=== PATIENT | male | born 1955 | race Caucasian/White ===

== ENCOUNTER → 2018-01-12 16:04 | Outpatient (CLI) | payer OTHER, SELFPAY ==
[2018-01-12 18:49] LABS: PSA,Total - Annual Screen 3.44 ng/mL (0.00-4.00)
== END ==
PROVIDERS: Family Provider Family Medicine; PCP Family Medicine; Visit Provider Urology
DX: Z12.5 Encounter for screening for malignant neoplasm of prostate (principal)
CPT/HCPCS: 36415; 84153; G0103

== ENCOUNTER → 2018-10-28 11:12 | Outpatient (CLI) | payer OTHER, SELFPAY ==
[2018-10-28 14:07] LABS: Absolute Lymphocyte Count 1.56 X10^3/ul (0.83-4.51); Absolute Neutrophil Count 4.5 X10^3/uL (2.0-7.7); Basophil# 0.03 X10^3/uL; Basophil% 0.4 % (0-1); Eosinophil# 0.36 X10^3/uL; Eosinophils% 5.1 % (0-5); Hematocrit 44.9 % (40-54); Hemoglobin 14.5 g/dl (13.0-16.5); Lymphocyte # 1.56 X10^3/ul (4.0); Lymphocyte % 22.1 % (19-41); Mean Corp Hgb Conc 32.3 g/gl (32-36); Monocyte# 0.61 X10^3/uL; Monocyte% 8.7 % (0-10); Neutrophil # 4.48 X10^3/uL (2.7-7.7); Neutrophil % 63.6 % (47-70); POSITIVE COUNT NO; POSITIVE DIFFERENTIAL NO; POSITIVE MORPHOLOGY NO; Platelet Count 241 K/mm3 (150-450); RBC Distribution Width CV 13.5 % (11.6-14.6); RBC Distribution Width SD 45.8 fl (35.1-43.9); Red Blood Count 4.83 M/mm3 (4.6-6.2); White Blood Count 7.1 K/mm3 (4.4-11.0)
[2018-10-28 14:24] LABS: Hemoglobin A1c 6.3 % (4.2-6.3)
[2018-10-28 14:30] LABS: ALB/GLOB Ratio 1.1 RATIO (0.9-2.4); AST(SGOT) 17 U/L (15-37); Alanine Aminotransfer ALT/SGPT 31 U/L (16-61); Albumin, Serum 3.6 g/dL (3.2-5.0); Alkaline Phosphatase 77 U/L (45-117); Anion Gap 7 (5-15); BUN 13 mg/dL (7-18); BUN/Creat Ratio 14.7 RATIO (10-20); Calcium,Total 8.8 mg/dL (8.5-10.1); Chloride 108 mmol/L (98-107); Cholesterol 166 mg/dL (200); Creatinine, Serum 0.88 mg/dL (0.70-1.30); EST Glomerular Filtration Rate 92 mL/min (>60); Est Glom Filt Rate - Afr Amer 111 mL/min (>60); Globulin 3.4 g/dL (2.2-4.2); Glucose 96 mg/dL (74-106); High Density Lipoprotein 46 mg/dL; Potassium 4.4 mmol/L (3.5-5.1); Sodium Level 140 mmol/L (136-145); Thyroid Stim Hormone (TSH) 2.95 uIU/mL (0.358-3.74); Triglycerides 85 mg/dL; Very Low Density Lipoprotein 17 mg/dL (5-40)
[2018-10-28 14:35] LABS: Microalbumin,Random Urine 8.5 mg/L (NO RANGE EST.); Microalbumin:Creatinine Ratio 4.9 mg/g CRE (<30 mg/g CRE)
--- OUTSIDE RECORDS SUMMARY | 2018-12-23 19:43 | XMS RPT_ITS ---
:1955 Author Organization [facility] Care Team Providers Name Role Phone Thom Main Attending Unavailable hTom Main Referring Unavailable Shawn Parmar Primary Care Unavailable Shawn Parmar Attending Unavailable Shawn Parmar Primary Care Unavailable PROBLEMS PROBLEMS No Problem Records FoundPROCEDURES PROCEDURES No Procedure Records FoundRESULTS RESULTS CBC W/DIFF, AUTOMATED Collected: 10/28/2018 Status: F Source: [place] 11:13 AM [facility] [place] REPOSITORY TYPE CODE TESTS RESULT OUT OF RANGE REFERENCE UNITS LAB L100.1000 4.4-11.0 K/mm3 Normal WBC 7.1 LAB L100.1200 4.6-6.2 M/mm3 Normal RBC 4.83 LAB L100.1300 13.0-16.5 g/dl Normal HGB 14.5 LAB L100.1400 40-54 % Normal HCT 44.9 LAB L100.1500 80-94 fL Normal MCV 93.0 LAB L100.1600 27.0-32.0 pg Normal MCH 30.0 LAB L100.1700 32-36 g/gl Normal MCHC 32.3 LAB L100.1810 11.6-14.6 % Normal RDW CV 13.5 LAB L100.1820 35.1-43.9 fl High RDW SD 45.8 LAB L100.1900 150-450 K/mm3 Normal PLT 241 LAB L100.2000 6.2-12.0 fl Normal MPV 11.0 LAB L100.2100 47-70 % Normal NEUT% 63.6 LAB L100.2200 19-41 % Normal LY% 22.1 LAB L100.2300 0-10 % Normal MONO% 8.7 LAB L100.2400 0-5 % High EO% 5.1 LAB L100.2500 0-1 % Normal BASO% 0.4 LAB L100.2550 0.0-0.9 % Normal IM GRAN % 0.100 Result Comment: IG% - Immature Granulocytes (promyelocytes, myelocytes and metamyelocytes) > 1% indicates that a LEFT SHIFT is Present. LAB L100.2620 2.0-7.7 X10 3/uL Normal Absolute Neut 4.5 LAB L100.2720 0.83-4.51 X10 3/ul Normal Absolute Lymph 1.56 Performed By: #### L100.0100 #### [facility] [address] [place], [place], [address] HEMOGLOBIN A1C Collected: 10/28/2018 Status: F Source: [place] 11:13 AM [facility] [place] REPOSITORY TYPE CODE TESTS RESULT OUT OF RANGE REFERENCE UNITS LAB L501.9985 4.2-6.3 % Normal HGB A1C 6.3 Performed By: #### L501.9985 #### [facility] [address] [place], [place], [address] COMPREHENSIVE METABOLIC Collected: 10/28/2018 Status: F Source: [facility] 11:13 AM [facility] [place] REPOSITORY TYPE CODE TESTS RESULT OUT OF RANGE REFERENCE UNITS LAB L501.0100 74-106 mg/dL Normal GLU 96 Result Comment: Please note revised GLUCOSE reference range effective 2018. LAB L501.1000 7-18 mg/dL Normal BUN 13 LAB L501.1100 0.70-1.30 mg/dL Normal CREAT,SERUM 0.88 Result Comment: The validity of the calculated GFR AND GFRAA in patients over 70 years has not been determined. Clinical correlation is essential. LAB L501.1110 >60 mL/min Normal EST GFR 92 Result Comment: Non- GFR Calc LAB L501.1115 >60 mL/min Normal EST GFR - AA 111 Result Comment: GFR Calc LAB L501.1300 10-20 RATIO Normal BUN/CRE 14.7 LAB L501.1500 6.4-8.2 g/dL T Normal PROT 7.0 LAB L501.1800 3.2-5.0 g/dL Normal ALB 3.6 LAB L501.1950 2.2-4.2 g/dL Normal GLOB 3.4 LAB L501.2000 0.9-2.4 RATIO Normal A/G 1.1 LAB L501.2200 8.5-10.1 mg/dL CA Normal 8.8 LAB L501.4100 15-37 U/L Normal AST 17 LAB L501.4305 45-117 U/L Normal ALK P 77 LAB L501.4405 16-61 U/L Normal ALT 31 LAB L501.4600 0.20-1.00 mg/dL T Normal BILI 0.50 LAB L501.5300 136-145 mmol/L NA Normal 140 LAB L501.5600 3.5-5.1 mmol/L K Normal 4.4 LAB L501.5900 98-107 mmol/L High CL 108 LAB L501.6100 21.0-32.0 mmol/L Normal CO2 25.0 LAB L501.6200 5-15 Normal GAP 7 Performed By: #### L500.4050, L500.4100, L501.9520 #### [facility] [address] [place], [place], [address] LIPID PROFILE Collected: 10/28/2018 Status: F Source: [place] 11:13 AM [facility] [place] REPOSITORY TYPE CODE TESTS RESULT OUT OF RANGE REFERENCE UNITS LAB L501.4900 200 mg/dL Normal CHOL 166 Result Comment: <200 mg/dL Desirable 200-240 mg/dL Borderline >240 mg/dL High Risk LAB L501.5000 mg/dL Normal TRIG 85 Result Comment: The drugs N-Acetylcysteine and Metamizole may falsely depress this assay. Serum Triglycerides Reference Interval Normal <150 mg/dL Borderline high 150 - 199 mg/dL High 200 - 499 mg/dL Very High > or = 500 mg/dL LAB L501.6400 mg/dL Normal HDL 46 Result Comment: The drugs N-Acetylcysteine and Metamizole may falsely depress this assay. Reference Range HDL <40 mg/dL Low HDL Cholesterol HDL >or= 60 mg/dL High HDL Cholesterol LAB L501.6500 0-130 mg/dL Normal LDL 103 LAB L501.6600 5-40 mg/dL Normal VLDL 17 Performed By: #### L500.4050, L500.4100, L501.9520 #### [facility] [address] [place], [address] THYROID STIM HORMONE Collected: 10/28/2018 Status: F Source: FRANK (TSH) 11:13 AM [facility] [place] REPOSITORY TYPE CODE TESTS RESULT OUT OF RANGE REFERENCE UNITS LAB L501.9520 0.358-3.74 uIU/mL Normal TSH 2.95 Performed By: #### L500.4050, L500.4100, L501.9520 #### [facility] [address] [place], [address] MICROALB:CREAT Collected: 10/28/2018 Status: F Source: [place]ANK RATIO,RANDOM UR 11:13 AM [facility] [place] REPOSITORY TYPE CODE TESTS RESULT OUT OF RANGE REFERENCE UNITS LAB L501.1200 NO RANGE EST. mg/dL Normal UR CREAT 172.00 LAB L502.0500 NO RANGE EST. mg/L Normal 8.5 MICROALBUMIN ,UR LAB L502.0600 <30 mg/g CRE mg/g CRE Normal 4.9 MALB:CREAT Performed By: #### L502.0250 #### [facility] [address] [facility] [place], [address] PSA,TOTAL - ANNUAL Collected: 01/12/2018 Status: F Source: [place]ANK SCREEN 4:11 PM [facility] [place] REPOSITORY TYPE CODE TESTS RESULT OUT OF RANGE REFERENCE UNITS LAB L501.9910 0.00-4.00 ng/mL Normal PSA,TOT 3.44 SCREEN Result Comment: This test was performed using the TPSA assay method for the [employer] chemistry system. Values obtained with different assay methods cannot be used interchangably. When changing PSA assays in the course of monitoring a patient, additional sequential testing should be carried out to confirm baseline values. Performed By: #### L501.9910 #### [facility] [address] [place], [address] ALLERGIES ALLERGIES No Allergies Records FoundENCOUNTERS ENCOUNTERS ADMIT/DISCHARGE ACCOUNT ADMITTING ENCOUNTER LOCATION SOURCE NUMBER CLASS 10/28/2018 [id number] Ambulatory [place] Frank [address] [facility] ing:MFPLAB Repository 01/12/2018 [id number] Ambulatory [place] [facility] [address] [facility] ing:LAB Repository PAYERS PAYERS ENCOUNTER GUARANTOR PAYER SUBSCRIBER SOURCE 10/28/2018 Starr W Primary Starr W [place] [id number] Insurance:MEDICAL KurtzDOB: [facility] [id number] Number: Repository [id number]: [phone] [id number] [phone] (HP) Date:[id number] [address] [address]PG: 10/28/2018 Secondary NOT GIVENUNK [place] Insurance:SELF PAY [facility] Number: Effective Repository Date:2018-10-28 01/12/2018 Starr W Primary Starr W [place] [id number] Insurance:MEDICAL KurtzDOB: [facility] [id number] Number: Repository [id number]: [phone]) [id number] [phone] (HP) Date:[id number] [address] [address]ZC: 01/12/2018 Secondary NOT GIVENUNK [place] Insurance:SELF PAY [facility] Number: Effective Repository Date:2018-01-12
== END ==
PROVIDERS: Family Provider Family Medicine; PCP Family Medicine; Visit Provider Family Medicine
DX: Z00.00 Encounter for general adult medical examination without abnormal findings (principal); I10 Essential (primary) hypertension; E66.9 Obesity, unspecified
CPT/HCPCS: 36415; 80053; 80061; 82043; 82570; 83036; 84443; 85025

== ENCOUNTER → 2018-11-25 09:51 | Outpatient (CLI) | payer OTHER, SELFPAY ==
--- NOTE | 2018-11-25 09:55 | EKG12_ITS ---
Test Reason : PRE-OP Blood Pressure : / mmHG Vent. Rate : 066 BPM Atrial Rate : 066 BPM P-R Int : 186 ms QRS Dur : 094 ms QT Int : 398 ms P-R-T Axes : 043 -01 030 degrees QTc Int : 417 ms Normal sinus rhythm Normal ECG Confirmed by KIRAN LUBIN, CELESTINO ([id number]), purchasing expeditor ALECIA CLIFFORD ([id number]) on 11/27/2018 3:28:13 PM Referred By: Thom Main Confirmed By:CELESTINO BECK MD
[2018-11-25 11:01] LABS: Absolute Lymphocyte Count 1.49 X10^3/ul (0.83-4.51); Absolute Neutrophil Count 3.6 X10^3/uL (2.0-7.7); Basophil# 0.05 X10^3/uL; Basophil% 0.8 % (0-1); Eosinophil# 0.33 X10^3/uL; Eosinophils% 5.4 % (0-5); Hematocrit 43.9 % (40-54); Hemoglobin 14.5 g/dl (13.0-16.5); Lymphocyte # 1.49 X10^3/ul (4.0); Lymphocyte % 24.2 % (19-41); Mean Corpuscular Hgb 30.5 pg (27.0-32.0); Mean Corpuscular Volume 92.4 fL (80-94); Mean Platelet Vol. 10.8 fl (6.2-12.0); Monocyte# 0.69 X10^3/uL; Monocyte% 11.2 % (0-10); Neutrophil # 3.58 X10^3/uL (2.7-7.7); Neutrophil % 58.2 % (47-70); Platelet Count 221 K/mm3 (150-450); RBC Distribution Width CV 13.6 % (11.6-14.6); RBC Distribution Width SD 45.2 fl (35.1-43.9); Red Blood Count 4.75 M/mm3 (4.6-6.2); White Blood Count 6.2 K/mm3 (4.4-11.0)
[2018-11-25 11:03] LABS: POSITIVE COUNT NO; POSITIVE DIFFERENTIAL NO; POSITIVE MORPHOLOGY NO
[2018-11-25 11:27] LABS: Anion Gap 6 (5-15); BUN 16 mg/dL (7-18); Calcium,Total 8.6 mg/dL (8.5-10.1); Chloride 108 mmol/L (98-107); Creatinine, Serum 0.94 mg/dL (0.70-1.30); EST Glomerular Filtration Rate 86 mL/min (>60); Est Glom Filt Rate - Afr Amer 103 mL/min (>60); Glucose 126 mg/dL (74-106); Potassium 4.3 mmol/L (3.5-5.1); Sodium Level 140 mmol/L (136-145)
== END ==
PROVIDERS: Family Provider Family Medicine; PCP Family Medicine; Referring Provider Urology; Visit Provider Urology
DX: Z01.812 Encounter for preprocedural laboratory examination (principal)
CPT/HCPCS: 36415; 80048; 85025; 93005

== ENCOUNTER 2019-02-03 07:12 | Day surgery (SDC) | payer OTHER, SELFPAY ==
[2019-01-08 08:37] VITALS: BMI 35.8
[2019-02-03 07:32] VITALS: BP 148/90; PULSE 54; RESP 16; TEMP 35.9; O2SAT 95; BMI 37.4
[2019-02-03 08:24] VITALS: BP 113/74; BP 148/90; PULSE 58; RESP 16; TEMP 36.6; O2SAT 98
--- NOTE | 2019-02-03 08:26 | OP.ENDO_ITS ---
02/03/2019 Shawn Parmar [address] [place] [address] Re : Colonoscopy procedure for Dharmesh Joel Dear Dr. Parmar This procedure was performed on Sunday, February 03, 2019. My impressions and recommendations are as follows: Impressions : - A prostate nodule found on digital rectal exam. - Diverticulosis in the sigmoid colon and in the ascending colon. - Non-bleeding internal hemorrhoids. - No specimens collected. Recommendations : - Repeat colonoscopy in 10 years for screening purposes. - Return to my office PRN. - Continue present medications. My findings are described in the full procedure note, which is enclosed. If I can be of further assistance, please feel free to contact me at Doctor phone number(s): , Fax: [phone], Work: . Sincerely, MD Christopher Olmos MD 02/03/2019 8:25:39 AM This report has been signed electronically.
[2019-02-03 08:30] VITALS: BP 129/76; BP 148/90; PULSE 59; RESP 16; O2SAT 95
[2019-02-03 08:35] VITALS: BP 136/76; BP 148/90; PULSE 58; RESP 17; O2SAT 97
[2019-02-03 08:43] VITALS: BP 131/92; BP 148/90; PULSE 57; RESP 16; TEMP 36.8; O2SAT 98
[2019-02-03 09:04] VITALS: BP 148/90
== END 2019-02-03 09:09 | disposition home or self-care (01) ==
LOC: EN 07:13 → AC 07:16
PROVIDERS: Family Provider Family Medicine; PCP Family Medicine; Referring Provider Surgery; Visit Provider Surgery
PROC: 0DJD8ZZ Inspection of Lower Intestinal Tract, Via Natural or Artificial Opening Endoscopic (ICD-10-PCS; CPT 45378; principal; 2019-02-03 08:10)
DX: Z12.11 Encounter for screening for malignant neoplasm of colon (principal); N40.2 Nodular prostate without lower urinary tract symptoms; K57.30 Diverticulosis of large intestine without perforation or abscess without bleeding; K64.8 Other hemorrhoids; Z87.19 Personal history of other diseases of the digestive system; I10 Essential (primary) hypertension; M19.90 Unspecified osteoarthritis, unspecified site; Z79.82 Long term (current) use of aspirin; Z79.899 Other long term (current) drug therapy
CPT/HCPCS: 45378; J7120

== ENCOUNTER → 2019-02-16 13:44 | Outpatient (CLI) | payer OTHER, SELFPAY ==
[2019-02-03 07:32] VITALS: BMI 37.4
[2019-02-16 14:41] LABS: PSA,Total- Diagnostic 3.44 ng/mL (0.0-4.0)
== END ==
PROVIDERS: Family Provider Family Medicine; PCP Family Medicine; Referring Provider Urology; Visit Provider Urology
DX: N40.2 Nodular prostate without lower urinary tract symptoms (principal)
CPT/HCPCS: 36415; 84153

== ENCOUNTER → 2019-04-20 08:56 | Outpatient (CLI) | payer OTHER, SELFPAY ==
[2019-04-20 10:31] LABS: Hemoglobin A1c 6.3 % (4.2-6.3)
[2019-04-20 10:34] LABS: ALB/GLOB Ratio 1.1 RATIO (0.9-2.4); AST(SGOT) 19 U/L (15-37); Alanine Aminotransfer ALT/SGPT 33 U/L (16-61); Albumin, Serum 3.6 g/dL (3.2-5.0); Alkaline Phosphatase 75 U/L (45-117); Anion Gap 4 (5-15); BUN 19 mg/dL (7-18); BUN/Creat Ratio 20.1 RATIO (10-20); Calcium,Total 8.9 mg/dL (8.5-10.1); Chloride 108 mmol/L (98-107); Cholesterol 178 mg/dL (200); Creatinine, Serum 0.95 mg/dL (0.70-1.30); EST Glomerular Filtration Rate 85 mL/min (>60); Est Glom Filt Rate - Afr Amer 103 mL/min (>60); Globulin 3.4 g/dL (2.2-4.2); Glucose 106 mg/dL (74-106); High Density Lipoprotein 41 mg/dL; Potassium 4.6 mmol/L (3.5-5.1); Sodium Level 140 mmol/L (136-145); Triglycerides 51 mg/dL; Very Low Density Lipoprotein 10 mg/dL (5-40)
[2019-04-20 10:43] LABS: Microalbumin,Random Urine 8.9 mg/L (NO RANGE EST.); Microalbumin:Creatinine Ratio 6.5 mg/g CRE (<30 mg/g CRE)
== END ==
PROVIDERS: Family Provider Family Medicine; PCP Family Medicine; Referring Provider Family Medicine; Visit Provider Family Medicine
DX: E88.81 Metabolic syndrome and other insulin resistance (principal); I10 Essential (primary) hypertension
CPT/HCPCS: 36415; 80053; 80061; 82043; 82570; 83036

== ENCOUNTER → 2019-11-02 09:28 | Outpatient (CLI) | payer OTHER, SELFPAY ==
[2019-11-02 10:40] LABS: Hemoglobin A1c 6.2 % (4.2-6.3)
[2019-11-02 11:02] LABS: ALB/GLOB Ratio 0.9 RATIO (0.9-2.4); AST(SGOT) 27 U/L (15-37); Alanine Aminotransfer ALT/SGPT 39 U/L (16-61); Albumin, Serum 3.6 g/dL (3.2-5.0); Alkaline Phosphatase 75 U/L (45-117); Anion Gap 5 (5-15); BUN 16 mg/dL (7-18); BUN/Creat Ratio 15.4 RATIO (10-20); Calcium,Total 8.5 mg/dL (8.5-10.1); Chloride 109 mmol/L (98-107); Cholesterol 189 mg/dL (200); Creatinine, Serum 1.04 mg/dL (0.70-1.30); EST Glomerular Filtration Rate 76 mL/min (>60); Est Glom Filt Rate - Afr Amer 92 mL/min (>60); Globulin 3.8 g/dL (2.2-4.2); Glucose 114 mg/dL (74-106); High Density Lipoprotein 44 mg/dL; Potassium 4.2 mmol/L (3.5-5.1); Protein, Total 7.4 g/dL (6.4-8.2); Sodium Level 140 mmol/L (136-145); Thyroid Stim Hormone (TSH) 2.74 uIU/mL (0.358-3.74); Triglycerides 70 mg/dL; Very Low Density Lipoprotein 14 mg/dL (5-40)
[2019-11-02 12:54] LABS: Microalbumin,Random Urine 11.4 mg/L (NO RANGE EST.); Microalbumin:Creatinine Ratio 4.7 mg/g CRE (<30 mg/g CRE)
== END ==
PROVIDERS: Family Provider Family Medicine; PCP Family Medicine; Referring Provider Family Medicine; Visit Provider Family Medicine
DX: E88.81 Metabolic syndrome and other insulin resistance (principal)
CPT/HCPCS: 36415; 80053; 80061; 82043; 82570; 83036; 84443

== ENCOUNTER → 2020-03-28 10:08 | Outpatient (CLI) | payer OTHER, SELFPAY ==
[2020-03-28 11:48] LABS: PSA,Total- Diagnostic 3.82 ng/mL (0.0-4.0)
== END ==
PROVIDERS: PCP Family Medicine; Referring Provider Urology; Visit Provider Urology
DX: R97.20 Elevated prostate specific antigen [PSA] (principal)
CPT/HCPCS: 36415; 84153

== ENCOUNTER → 2020-06-13 11:41 | Outpatient (CLI) | payer OTHER, SELFPAY ==
[2020-06-13 15:51] LABS: ALB/GLOB Ratio 1.1 RATIO (0.9-2.4); AST(SGOT) 29 U/L (15-37); Alanine Aminotransfer ALT/SGPT 48 U/L (16-61); Albumin, Serum 3.7 g/dL (3.2-5.0); Alkaline Phosphatase 78 U/L (45-117); Anion Gap 8 (5-15); BUN 15 mg/dL (7-18); Calcium,Total 8.9 mg/dL (8.5-10.1); Chloride 103 mmol/L (98-107); Cholesterol 224 mg/dL (200); Creatinine, Serum 0.94 mg/dL (0.70-1.30); EST Glomerular Filtration Rate 86 mL/min (>60); Est Glom Filt Rate - Afr Amer 104 mL/min (>60); Globulin 3.5 g/dL (2.2-4.2); Glucose 99 mg/dL (74-106); High Density Lipoprotein 43 mg/dL; Potassium 4.8 mmol/L (3.5-5.1); Protein, Total 7.2 g/dL (6.4-8.2); Sodium Level 137 mmol/L (136-145); Triglycerides 64 mg/dL; Very Low Density Lipoprotein 13 mg/dL (5-40)
[2020-06-13 16:56] LABS: Hemoglobin A1c 6.1 % (3.8-5.6)
== END ==
PROVIDERS: PCP Family Medicine; Referring Provider Family Medicine; Visit Provider Family Medicine
DX: E88.81 Metabolic syndrome and other insulin resistance (principal); I10 Essential (primary) hypertension
CPT/HCPCS: 36415; 80053; 80061; 83036

== ENCOUNTER → 2020-12-08 09:31 | Outpatient (CLI) | payer OTHER, SELFPAY ==
[2020-12-08 12:24] LABS: Absolute Lymphocyte Count 1.43 X10^3/uL (0.83-4.51); Absolute Neutrophil Count 3.8 X10^3/uL (2.0-7.7); Basophil# 0.05 X10^3/uL; Basophil% 0.8 % (0-1); Eosinophil# 0.22 X10^3/uL; Eosinophils% 3.5 % (0-5); Hematocrit 45.9 % (40-54); Hemoglobin 14.9 g/dL (13.0-16.5); Lymphocyte # 1.43 X10^3/ul (4.0); Lymphocyte % 22.9 % (19-41); Mean Corp Hgb Conc 32.5 g/dL (32-36); Mean Corpuscular Hgb 30.7 pg (27.0-32.0); Mean Corpuscular Volume 94.6 fL (80-94); Monocyte# 0.76 X10^3/uL; Monocyte% 12.2 % (0-10); NRBC Flagged by Analyzer 0 % (0-5); Neutrophil # 3.77 X10^3/uL (2.7-7.7); Neutrophil % 60.4 % (47-70); Platelet Count 268 K/mm3 (150-450); RBC Distribution Width CV 13.2 % (11.6-14.6); Red Blood Count 4.85 M/mm3 (4.6-6.2); White Blood Count 6.2 K/mm3 (4.4-11.0)
[2020-12-08 12:48] LABS: Hemoglobin A1c 6.1 % (3.8-5.6)
[2020-12-08 13:02] LABS: ALB/GLOB Ratio 0.9 RATIO (0.9-2.4); AST(SGOT) 19 U/L (15-37); Alanine Aminotransfer ALT/SGPT 47 U/L (16-61); Albumin, Serum 3.5 g/dL (3.2-5.0); Alkaline Phosphatase 85 U/L (45-117); Anion Gap 5 (5-15); BUN 17 mg/dL (7-18); BUN/Creat Ratio 17.2 RATIO (10-20); Calcium,Total 9.1 mg/dL (8.5-10.1); Chloride 108 mmol/L (98-107); Cholesterol 197 mg/dL (200); Creatinine, Serum 0.99 mg/dL (0.70-1.30); EST Glomerular Filtration Rate 80 mL/min (>60); Est Glom Filt Rate - Afr Amer 97 mL/min (>60); Globulin 3.8 g/dL (2.2-4.2); Glucose 105 mg/dL (74-106); High Density Lipoprotein 41 mg/dL; Potassium 4.6 mmol/L (3.5-5.1); Protein, Total 7.3 g/dL (6.4-8.2); Sodium Level 139 mmol/L (136-145); Thyroid Stim Hormone (TSH) 3.61 uIU/mL (0.358-3.74); Triglycerides 82 mg/dL; Very Low Density Lipoprotein 16 mg/dL (5-40)
== END ==
PROVIDERS: PCP Family Medicine; Visit Provider Family Medicine
DX: E88.81 Metabolic syndrome and other insulin resistance (principal); R06.00 Dyspnea, unspecified
CPT/HCPCS: 36415; 80053; 80061; 83036; 84443; 85025

== ENCOUNTER → 2021-03-07 08:34 | Outpatient (CLI) | payer MEDICARE, OTHER, SELFPAY ==
[2021-03-07 10:52] LABS: Hemoglobin A1c 6.1 % (3.8-5.6)
[2021-03-07 11:04] LABS: AST(SGOT) 21 U/L (15-37); Alanine Aminotransfer ALT/SGPT 42 U/L (16-61); Albumin, Serum 3.7 g/dL (3.2-5.0); Alkaline Phosphatase 79 U/L (45-117); Bilirubin, Direct 0.17 mg/dL (0.00-0.30); Cholesterol 151 mg/dL (200); Globulin 3.8 g/dL (2.2-4.2); High Density Lipoprotein 42 mg/dL; Protein, Total 7.5 g/dL (6.4-8.2); Triglycerides 63 mg/dL; Very Low Density Lipoprotein 13 mg/dL (5-40)
== END ==
PROVIDERS: PCP Family Medicine; Referring Provider Family Medicine; Visit Provider Family Medicine
DX: E78.00 Pure hypercholesterolemia, unspecified (principal); Z79.899 Other long term (current) drug therapy
CPT/HCPCS: 36415; 80061; 80076; 83036

== ENCOUNTER → 2021-04-10 08:41 | Outpatient (CLI) | payer MEDICARE, OTHER, SELFPAY ==
[2021-04-10 10:44] LABS: PSA,Total - Annual Screen 3.88 ng/mL (0.00-4.00)
== END ==
PROVIDERS: PCP Family Medicine; Referring Provider Urology; Visit Provider Urology
DX: Z12.5 Encounter for screening for malignant neoplasm of prostate (principal)
CPT/HCPCS: 36415; 84153; G0103

== ENCOUNTER 2022-02-26 12:08 | Outpatient (CLI) | payer MEDICARE, OTHER, SELFPAY ==
[2022-02-26 15:39] LABS: Hematocrit 44.6 % (40-54); Hemoglobin 14.5 g/dL (13.0-16.5); Mean Corp Hgb Conc 32.5 g/dL (32-36); Mean Corpuscular Hgb 30.5 pg (27.0-32.0); Mean Corpuscular Volume 93.7 fL (80-94); Platelet Count 259 K/mm3 (150-450); RBC Distribution Width CV 13.3 % (11.6-14.6); RBC Distribution Width SD 46.2 fl (35.1-43.9); Red Blood Count 4.76 M/mm3 (4.6-6.2); White Blood Count 7.5 K/mm3 (4.4-11.0)
[2022-02-26 16:09] LABS: Hemoglobin A1c 6.4 % (3.8-5.6)
[2022-02-26 16:18] LABS: AST(SGOT) 20 U/L (15-37); Alanine Aminotransfer ALT/SGPT 34 U/L (16-61); Albumin, Serum 3.8 g/dL (3.2-5.0); Alkaline Phosphatase 85 U/L (45-117); Anion Gap 7 (5-15); BUN 19 mg/dL (7-18); BUN/Creat Ratio 19.2 RATIO (10-20); Chloride 103 mmol/L (98-107); Cholesterol 164 mg/dL (200); Creatinine, Serum 0.99 mg/dL (0.70-1.30); EST Glomerular Filtration Rate 80 mL/min (>60); Est Glom Filt Rate - Afr Amer 97 mL/min (>60); Glucose 107 mg/dL (74-106); High Density Lipoprotein 47 mg/dL; Potassium 4.6 mmol/L (3.5-5.1); Protein, Total 7.8 g/dL (6.4-8.2); Sodium Level 136 mmol/L (136-145); Triglycerides 62 mg/dL; Very Low Density Lipoprotein 12 mg/dL (5-40)
== END 2022-02-26 23:59 | disposition home or self-care (01) ==
PROVIDERS: PCP Family Medicine; Referring Provider Family Medicine; Visit Provider Registered Nurse
DX: I10 Essential (primary) hypertension (principal); E66.9 Obesity, unspecified
CPT/HCPCS: 36415; 80053; 80061; 83036; 85027

== ENCOUNTER → 2022-04-16 | Outpatient (CLI) | payer MEDICARE, OTHER, SELFPAY ==
[2022-04-16 11:33] LABS: PSA,Total - Annual Screen 4.56 ng/mL (0.00-4.00)
== END | disposition home or self-care (01) ==
PROVIDERS: PCP Family Medicine; Referring Provider Urology; Visit Provider Registered Nurse
DX: Z12.5 Encounter for screening for malignant neoplasm of prostate (principal)
CPT/HCPCS: 36415; 84153; G0103

== ENCOUNTER 2022-06-04 09:00 | Outpatient (RCR) | payer MEDICARE, OTHER, SELFPAY ==
--- NOTE | 2022-04-11 14:35 | HP.OTEVAL ---
Patient's Visit Information STARR MORGAN is a 66 year old M, referred to Occupational Therapy by Dr. Ruben Ellison MD, with a diagnosis of carpal tunnel syndrome right upper limb. Date of Evaluation: 04/09/22 Occupational Therapist: Josephine Russell, OTR/L, CHT - Subjective Pt. is a 66 y/o male carpal tunnel sx in past. 1st carpal tunnel surgery 6 years a go by Dr. Loya. He had surgery on 03-14-22, close to 4 weeks ago. On 04-26-22 has a follow up visit. 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 His diagnosis is carpal tunnel syndrome of R upper limb. He would like to return to PLOF and increase sensation. - ADLs Comments: have a rider. Grandkids are currently mowing. Comments: buttons, zippers, shoestrings - Pain Right Hand 0 Pain Intensity Range: 2 - ROM Shoulder: B WFL Elbow: B WFL Wrist: R 30/60 L 45/70 CMC: R 30/10 L 35/10 MP: R 5/45 L 10/45 IP: R 10/50, L 30/40 Opposition: Kapandji Scale left 4 - Strength Water/Wastewater Project Engineer: L 75# Lateral Pinch: L 15# Tripod Pinch: L 14# Tip-to-Tip Pinch: L 12# Strength Comments: R hand to be assessed at a later date - Sensation Thumb: R & L 5.18 Index: R & L 5.18 Middle: L 4.93 R 5.18 Ring: L R 4.31 Little: L R 3.84 Sensation Comments: Pt. reported numbness. Pt. reported he has been visually compensating. - Quick DASH-Disab of Arm,Shoulder& Hand Quick DASH Score: 30.0000 - Goals Goal:100% adherence to protocol: Yes Comment: Dr. Raphael CTR with tendon transfer guidlines Goal:Daily scar massage when approriate: Yes Goal:ROM equal to unaffected hand: Yes Goal:Water/Wastewater Project Engineer/Pinch strength at least 75% of unaffected hand: Yes Goal:No pain with affected hand use: Yes Goal:Full use of affected hand in daily activities including: Yes Goal:Improvement in sensation documented by [place]-He: Yes - Rehabilitation General Assessment: Pt. is here for carpal tunnel syndrome right upper limb. He had revision of right carpal tunnel release, flexor tenosynovectomy right wrist, insert neurogen tubule right median nerve, vascularized hypothenar flap on 03-14-22, about 4 weeks ago. Educated pt. on what to expect. Because of deficits of decreased strength, ROM, and sensation has decreased indep with ADL's and work. Benefit from skilled OT services 1-2x a week for 6 weeks to improve independence. Pt. demo'd understanding & agreeable to POC. Therapy session was directly supervised and doc. reviewed and approved by Josephine Russell OTR/L,CHT. Rehabilitation Potential: Good - Anticipated Interventions Early Active Motion, A/AAROM/PROM, Strengthening, Scar Care, Sensory Retraining, Wound Care, Modalities, Orthoses, Joint Protection/Energy Conservation, Ergonomic Education, Fine Motor Coord/Chan, Education re Diagnosis, Education re Skin Care and Precautions, Education re Self Massage Techniques, Home Program Other Interventions: CHT educated pt. on what to expect and procedure that was done. - Visit Plan Frequency: 2x /Week General Plan: No thumb radial abduction 1-6 weeks post op. no pinching against resistance 1-6 weeks. no resistive exercises 1-6 weeks. no full arc of wrist motion. no passive wrist & thumb extension 1-6 weeks. no breakfast and room attendant strengthening 1-4 weeks. no weight bearing 1-8 weeks. weight restrictionn 5# with orthotic on. 35# restriction till 12 weeks TEXT: Thank you for the opportunity to evaluate your patient. For Medicare and Medicare HMO plans, please review the plan of care and approve it. It will need to be FAXED BACK to us at [phone] for Medicare purposes. Please let me know if there are questions or concerns regarding this plan of care. Physician Signature: Date:
== END 2022-06-04 19:00 | disposition home or self-care (01) ==
LOC: OT 09:00
PROVIDERS: PCP Family Medicine; Referring Provider Orthopaedic Surgery; Visit Provider Orthopaedic Surgery
DX: G56.01 Carpal tunnel syndrome, right upper limb (principal)
CPT/HCPCS: 97035; 97110; 97166; 97530

== ENCOUNTER → 2022-11-05 | Outpatient (CLI) | payer MEDICARE, OTHER, SELFPAY | END | disposition home or self-care (01) | LOC: LAB 09:29 | PROVIDERS: PCP Family Medicine; Referring Provider Urology; Visit Provider Urology | DX: N40.1 Benign prostatic hyperplasia with lower urinary tract symptoms (principal) | CPT/HCPCS: 36415; 84153 ==

== ENCOUNTER 2022-12-18 09:00 | Outpatient (RCR) | payer MEDICARE, OTHER, SELFPAY ==
--- NOTE | 2022-10-30 11:34 | HP.OTEVAL ---
Patient's Visit Information STARR MORGAN is a 67 year old M, referred to Occupational Therapy by Dr. Ruben Ellison MD, with a diagnosis of Left CTS. Date of Evaluation: 10/30/22 Occupational Therapist: Josephine Russell, OTR/Jorge, CHT - Subjective This 67 year old male was seen for OT eval with dx left CTS. pt states he struggled with symptoms a long time- was seen for right CTR spring. pt underwent sx Oct.17 for left CTR. pt arrives with gel wrist brace on- wound present at incision- denies pain but states sharp shooting pain at times but not often. pt states he is limited with ADLs and IADls due to healing from sx and would like to return to his PLOF and is hopeful he will get more sensation returning. - Pain left hand 2 - ROM Wrist: right 60/45 left 45/45 Opposition: Kapandji opposition scale right 4 left 4 ROM Comments: pt demo full composite fist - Strength Hat Blocking Machine Operator: right 60# left NT due to open wound Lateral Pinch: right 12# left 12# Tripod Pinch: right 16# left 10# Tip-to-Tip Pinch: right 10# left 12# Strength Comments: will test strength when wound is closed - Edema PIP: right MF 6.8 left 7.3 - Sensation Thumb: right 4.08 left 4.31 Index: right 3.84 left 5.07 Middle: right 4.08 left 4.08 Ring: right 2.83 left 2.83 Little: right 2.83 left 2.83 - Quick DASH-Disab of Arm,Shoulder& Hand Quick DASH Score: 20.0000 - Goals Goal:100% adherence to protocol: Yes Comment: Dr. ZAPATA post op Goal:Daily scar massage when approriate: Yes Goal:ROM equal to unaffected hand: Yes Goal:Hat Blocking Machine Operator/Pinch strength at least 75% of unaffected hand: Yes Goal:No pain with affected hand use: Yes Goal:PIP Circumferences equal to unaffected hand: Yes Goal:Full use of affected hand in daily activities including: Yes Goal:Improvement in sensation documented by [place]-He: Yes - Rehabilitation General Assessment: Pt is 1 week and 6 days s/p. pt demo with 1cmx.3 cm wound where incision opened- this limits full use of left hand with ADLs and IADLs. pt would benefit from skilled OT services 1x week for 4-6 weeks to ensure wound closure and returning pt to PLOF. Today therapist review of warm water soak with dreft, tendon glides and sensory re-ed along with recovery from CTS. pt demo understanding and agree to POC. Rehabilitation Potential: Good - Anticipated Interventions A/AAROM/PROM, Strengthening, Scar Care, Triggerpoint Release, Sensory Retraining, Wound Care, Modalities, Fine Motor Coord/Chan, Education re Diagnosis, Home Program - Visit Plan Frequency: 1x/Week Duration: 4-6 Weeks TEXT: Thank you for the opportunity to evaluate your patient. For Medicare and Medicare HMO plans, please review the plan of care and approve it. It will need to be FAXED BACK to us at [phone] for Medicare purposes. Please let me know if there are questions or concerns regarding this plan of care. Physician Signature: Date:
--- NOTE | 2022-12-18 09:25 | HP.OTDCSUM ---
It has been my pleasure to treat STARR MORGAN under orders from Dr. Ruben Ellison MD, for the diagnosis of Left CTS for a total of 4 visit(s). Please see the following information for a summary of their discharge status. % Improvement: 75 Objective/Function: left thumb 4.08 improved from 4.31. left IF 4.31 improved from 5.07. left MF 3.84 improved from 4.08. left RF 2.83. left LF 2.83. left salesperson floor coverings strength 60#. left lateral pinch 14#. left tripod pinch 10# Patient Goals: Use Hand/Wrist/Arm Normally Again, Be More Independent in ADLS Goal:100% adherence to protocol: Yes Goal:Daily scar massage when approriate: Yes Goal:ROM equal to unaffected hand: Yes Goal:Humanities Professor/Pinch strength at least 75% of unaffected hand: Yes Goal:No pain with affected hand use: Yes Goal:PIP Circumferences equal to unaffected hand: Yes Goal:Full use of affected hand in daily activities including: Yes Goal:Improvement in sensation documented by [place]-He: Yes Discharge Comments: pt was seen for 4 OT sessions following a CTR- pt continues to demo a decrease in sensation but has made sig. gains since his CTR. see above for monofilament testing- pt has met OT goals and is d/c with HEP. If there are questions or concerns regarding this patient's occupational therapy, please fell free to call me at [phone]. Thank you for the referral of this patient. Sincerely, Josephine Russell, OTR/L, CHT
== END 2022-12-18 10:33 | disposition home or self-care (01) ==
LOC: OT 09:00
PROVIDERS: PCP Family Medicine; Referring Provider Orthopaedic Surgery; Visit Provider Orthopaedic Surgery
DX: G56.02 Carpal tunnel syndrome, left upper limb (principal)
CPT/HCPCS: 97035; 97140; 97166; 97530

== ENCOUNTER → 2023-01-10 | Outpatient (CLI) | payer MEDICARE, OTHER, SELFPAY ==
[2023-01-10 12:42] LABS: Absolute Lymphocyte Count 1.61 X10^3/uL (0.83-4.51); Absolute Neutrophil Count 3.7 X10^3/uL (2.0-7.7); Basophil# 0.05 X10^3/uL; Basophil% 0.8 % (0-1); Eosinophil# 0.16 X10^3/uL; Eosinophils% 2.6 % (0-5); Hematocrit 44.6 % (40-54); Hemoglobin 13.9 g/dL (13.0-16.5); Lymphocyte # 1.61 X10^3/ul (0.83-4.51); Lymphocyte % 25.7 % (19-41); Mean Corp Hgb Conc 31.2 g/dL (32-36); Mean Corpuscular Hgb 29.1 pg (27.0-32.0); Mean Corpuscular Volume 93.3 fL (80-94); Mean Platelet Vol. 10.9 fl (6.2-12.0); Monocyte# 0.75 X10^3/uL; NRBC Flagged by Analyzer 0 % (0-5); Neutrophil # 3.67 X10^3/uL (2.7-7.7); Neutrophil % 58.6 % (47-70); Platelet Count 240 K/mm3 (150-450); RBC Distribution Width CV 13.6 % (11.6-14.6); RBC Distribution Width SD 46.6 fl (35.1-43.9); Red Blood Count 4.78 M/mm3 (4.6-6.2); White Blood Count 6.3 K/mm3 (4.4-11.0)
[2023-01-10 12:51] LABS: Microalbumin,Random Urine 9.8 mg/L (NO RANGE EST.); Microalbumin:Creatinine Ratio 7.7 mg/g CRE (<30 mg/g CRE)
[2023-01-10 13:01] LABS: Hemoglobin A1c 6.2 % (3.8-5.6)
[2023-01-10 13:39] LABS: ALB/GLOB Ratio 0.9 RATIO (0.9-2.4); AST(SGOT) 17 U/L (15-37); Alanine Aminotransfer ALT/SGPT 30 U/L (16-61); Albumin, Serum 3.5 g/dL (3.2-5.0); Alkaline Phosphatase 74 U/L (45-117); Anion Gap 6 (5-15); BUN 27 mg/dL (7-18); BUN/Creat Ratio 27.6 RATIO (10-20); Chloride 106 mmol/L (98-107); Cholesterol 152 mg/dL (200); Creatinine, Serum 0.98 mg/dL (0.70-1.30); EST Glomerular Filtration Rate 81 mL/min (>60); Est Glom Filt Rate - Afr Amer 98 mL/min (>60); Globulin 3.9 g/dL (2.2-4.2); Glucose 116 mg/dL (74-106); High Density Lipoprotein 46 mg/dL; PSA,Total- Diagnostic 2.25 ng/mL (0.0-4.0); Potassium 4.7 mmol/L (3.5-5.1); Protein, Total 7.4 g/dL (6.4-8.2); Sodium Level 139 mmol/L (136-145); Triglycerides 64 mg/dL; Very Low Density Lipoprotein 13 mg/dL (5-40)
== END | disposition home or self-care (01) ==
LOC: MFPLAB 10:50
PROVIDERS: PCP Family Medicine; Referring Provider Family Medicine; Visit Provider Family Medicine
DX: E88.81 Metabolic syndrome and other insulin resistance (principal); N40.0 Benign prostatic hyperplasia without lower urinary tract symptoms
CPT/HCPCS: 36415; 80053; 80061; 82043; 82570; 83036; 84153; 85025; A4216

== ENCOUNTER 2023-02-27 20:08 | Emergency (ER) | payer MEDICARE, OTHER, SELFPAY ==
[2023-02-27 20:11] VITALS: BP 190/97; PULSE 75; RESP 18; TEMP 36.4; O2SAT 97; BMI 38.5
--- NOTE | 2023-02-27 22:15 | EDS_ITS ---
HPI History of Present Illness Chief Complaint: Edema Informant: patient Narrative Narrative: 1 week of redness and swelling in the right lower leg, NOT the calf like the triage note indicates. The patient states he was using the word calf meaning lower leg. He is not having symptoms in the back/posteriorly, it is all anterior. It started in the knee, after he was kneeling on the floor for about half an hour, cleaning it. It started getting sore within the first half hour or hour or so after that, and the next day he had some swelling in the area of the right patella ligament and tibial tuberosity. This has progressed over the past week to erythema and swelling going down the dey toward the ankle, and it has been warm. The only area he has soreness is around the area where it is swollen at the tibial tuberosity. No other pains. No fevers, chills, no other systemic symptoms. He has had no breaks in the skin or bleeding near the time he was kneeling on his knee. [facility] Medical History (Updated 02/27/23 @ 23:[address] Chago Barnett MD) History of colon polyps History of retinal tear HTN (hypertension) Osteoarthritis Home Medications aspirin 81 mg tablet,delayed release (Adult Low Dose Aspirin) 81 mg PO DAILY 01/08/19 [History Last Taken 01/27/19] bisoprolol fumarate 5 mg tablet 5 mg PO DAILY BP 01/08/19 [History Last Taken 02/03/19 05:00] cholecalciferol (vitamin D3) 25 mcg (1,000 unit) capsule 1,000 unit PO DAILY 01/08/19 [History Last Taken Unknown] magnesium oxide 420 mg tablet 420 mg PO QHS 01/08/19 [History Last Taken Unknown] mznbxfelsvsb-ngfftyjf-pkqpay tablet 1 tab PO DAILY 01/08/19 [History Last Taken Unknown] oxybutynin chloride 10 mg tablet,extended release 24 hr 10 mg PO DAILY 01/08/19 [History Last Taken Unknown] pyridoxine (vitamin B6) 100 mg tablet 100 mg PO DAILY 01/08/19 [History Last Taken Unknown] tamsulosin 0.4 mg capsule (Flomax) 0.4 mg PO QHS PROSTATE 01/08/19 [History Last Taken Unknown] cephalexin 500 mg capsule 500 mg PO Q6 #40 CAPSULES 02/27/23 [Rx Last Taken Unknown] Allergy/AdvReac Type Severity Reaction Status Date / Time No Known Allergies Allergy Verified 02/27/23 20:13 Family History Mother Diabetes Heart disease Kidney disease Father Diabetes Heart disease Myocardial infarction Sister Diabetes Surgical History History of arthroscopy History of carpal tunnel repair (~2015) History of cataract extraction History of circumcision (~12/2018) History of colonoscopy (~2015) History of cystoscopy (~12/2018) History of umbilical hernia repair (~2015) History of vasectomy History of wisdom tooth extraction Social History Smoking Status: Never smoker ROS ROS ED Constitutional Constitutional ED: Denies chills or fever(s) Musculoskeletal Musculoskeletal: Reports extremity pain; Denies neck pain Integumentary Reports erythema; Denies Abrasions, rash or wounds Neurologic Neurologic: Denies paresthesias or weakness EXAM Physical Exam Const Vital Signs: 02/27/23 20:11 02/27/23 23:41 02/27/23 23:43 Temperature 97.6 F L Temperature Source Temporal Pulse Rate 75 Respiratory Rate 18 Respiratory Pattern Normal Blood Pressure 190/97 H 166/83 H Blood Pressure Mean 128 110 Pulse Ox 97 Oxygen Delivery Method Room Air Positive well nourished and well developed Constitutional Narrative: Well -appearing in no distress General Appearance ED: well developed and NAD Neck full ROM and supple Back/Spine normal ROM and normal to inspection Extremity full ROM Extremity Narrative: Full range of motion of the right knee, there is no effusion, full range of motion of the hip and ankle. All compartments soft and nondistended. See skin exam for details of the skin. No petechia or purpura. Only area of tenderness which is very mild is just medial to the swollen area noted at the patellar ligament and tibial tuberosity area. No bony tenderness. No effusion of the knee. Neuro oriented x3, no focal motor deficits and no sensory deficits noted Sensorium / Orientation: alert Psych mental status grossly normal and thought process normal Skin no wounds Skin Narrative: Mild blanching nontender erythema from the right anterior knee down the dey to the ankle but not necessarily including it, none in the foot, none proximal to the knee. No calf tenderness, palpable cord, or erythema/pain at all in the calf posteriorly, or the popliteal fossa. No abscess. Small swollen fluctuant area without tenderness over the area of the patellar ligament, more toward the tibial tuberosity than the patella. MDM MDM MDM Narrative Medical decision making narrative: I do not think this is a DVT nor does he need a study for that this is all anterior and started with history consistent with a traumatic right prepatellar bursitis. The area where he is swollen is right where 1 would kneel on the floor. Everything emanated from this. Differential includes infectious prepatellar bursitis, but I think it is probably more inflammatory. I obtain some labs and we attempted to aspirate the swollen area for culturing purposes, after discussing this with the patient. He understands the pros and cons and consented to the minor procedure. This was done see the procedure note. Discussed with Dr. Noland, we discussed the labs. He agrees with treating the patient empirically with cephalexin, sending a culture with no other labs requested of the fluid, and have the patient follow-up early after the weekend. He is comfortable with that plan. Lab Data Attestation: I reviewed the patient's lab results. Labs: Laboratory Results - last 24 hr 02/27/23 02/27/23 22:45 22:45 WBC 8.3 RBC 4.16 L Hgb 12.1 L Hct 37.5 L MCV 90.1 MCH 29.1 MCHC 32.3 RDW Std Deviation 46.0 H RDW Coeff of Lila 14.0 Plt Count 225 MPV 10.4 Immature Gran % (Auto) 0.200 Neut % (Auto) 67.4 Lymph % (Auto) 17.4 L [place] % (Auto) 11.9 H Eos % (Auto) 2.5 Baso % (Auto) 0.6 Absolute Neuts (auto) 5.6 Absolute Lymphs (auto) 1.45 Nucleated RBC % 0 ESR 47 H Sodium 139 Potassium 4.3 Chloride 107 Carbon Dioxide 29.0 Anion Gap 3 L BUN 18 Creatinine 1.02 Estim Creat Clear Calc 66.13 Est GFR (MDRD) Af Amer 93 Est GFR (MDRD) Non-Af 77 BUN/Creatinine Ratio 17.6 Glucose 98 Calcium 8.9 C-React Prot Ext Range 73.60 H Procedures Other Procedures Procedure(s): Patella bursa right knee aspiration: Sterile prep and drape, initially with isopropanol, then Betadine, freeze spray sterilely used, followed by aspirating with a number 21-gauge needle, 3 cc of transparent straw-colored fluid was obtained, there was a small amount of traumatic blood afterwards, dr essed with bacitracin and no complications tolerated well. Discharge Plan Triage Chief Complaint: Edema ED Provider: Chago Barnett Dx/Rx/DC Orders Clinical Impression: Prepatellar bursitis of right knee Instructions: Understanding Prepatellar Bursitis Prescriptions: New cephalexin [cephalexin] 500 mg capsule 500 mg PO Q6 Qty: 40 0RF No Action aspirin [Adult Low Dose Aspirin] 81 mg tablet,delayed release (DR/EC) 81 mg PO DAILY Label Comments: STOPPED PER INSTRUCTIONS FOR PROCEDURE pyridoxine (vitamin B6) 100 mg tablet 100 mg PO DAILY cholecalciferol (vitamin D3) 1,000 unit capsule 1,000 unit capsule 1,000 unit PO DAILY ozuljfreojpb-jjrthdyz-fppont tablet 1 tab PO DAILY bisoprolol fumarate 5 mg tablet 5 mg PO DAILY magnesium oxide 420 mg tablet 420 mg PO QHS tamsulosin [Flomax] 0.4 mg capsule 0.4 mg PO QHS oxybutynin chloride 10 mg tablet extended release 24hr 10 mg PO DAILY Primary Care Provider: Shawn Parmar Referrals: Shawn Parmar MD [Primary Care Provider] - James Noland DO [Med Staff - Active Staff] - 3-5 Days (Preferably at the beginning of this coming week; call for appointment) Disposition Disposition: Home, Self Care
[2023-02-27 22:53] LABS: Absolute Lymphocyte Count 1.45 X10^3/uL (0.83-4.51); Absolute Neutrophil Count 5.6 X10^3/uL (2.0-7.7); Basophil# 0.05 X10^3/uL; Basophil% 0.6 % (0-1); Eosinophil# 0.21 X10^3/uL; Eosinophils% 2.5 % (0-5); Hematocrit 37.5 % (40-54); Hemoglobin 12.1 g/dL (13.0-16.5); Lymphocyte # 1.45 X10^3/ul (0.83-4.51); Lymphocyte % 17.4 % (19-41); Mean Corp Hgb Conc 32.3 g/dL (32-36); Mean Corpuscular Hgb 29.1 pg (27.0-32.0); Mean Corpuscular Volume 90.1 fL (80-94); Mean Platelet Vol. 10.4 fl (6.2-12.0); Monocyte# 0.99 X10^3/uL; Monocyte% 11.9 % (0-10); NRBC Flagged by Analyzer 0 % (0-5); Neutrophil # 5.59 X10^3/uL (2.7-7.7); Neutrophil % 67.4 % (47-70); Platelet Count 225 K/mm3 (150-450); Red Blood Count 4.16 M/mm3 (4.6-6.2); White Blood Count 8.3 K/mm3 (4.4-11.0)
[2023-02-27 23:07] LABS: Anion Gap 3 (5-15); BUN 18 mg/dL (7-18); BUN/Creat Ratio 17.6 RATIO (10-20); Calcium,Total 8.9 mg/dL (8.5-10.1); Chloride 107 mmol/L (98-107); Creatinine, Serum 1.02 mg/dL (0.70-1.30); EST Glomerular Filtration Rate 77 mL/min (>60); Est Glom Filt Rate - Afr Amer 93 mL/min (>60); Estimated Creatinine Clearance 66.13 ml/min; Glucose 98 mg/dL (74-106); Potassium 4.3 mmol/L (3.5-5.1); Sodium Level 139 mmol/L (136-145)
[2023-02-27 23:09] LABS: Erythrocyte Sedimentation Rate 47 mm/hr (0-20)
[2023-02-27 23:43] VITALS: BP 166/83
[2023-02-27] MEDS: Cephalexin 250 MG Capsule 500 MG PO (23:59)
== END 2023-02-28 00:16 | disposition home or self-care (01) ==
PROVIDERS: Emergency Provider Emergency Medicine; PCP Family Medicine; Visit Provider Emergency Medicine
DX: M70.41 Prepatellar bursitis, right knee (principal); Z86.010 Personal history of colon polyps
CPT/HCPCS: 80048; 85025; 85652; 86140; 87070; 87077; 87186; 87205; 99284

== ENCOUNTER → 2023-11-18 | Outpatient (CLI) | payer MEDICARE, OTHER, SELFPAY ==
[2023-11-18 11:14] LABS: PSA,Total- Diagnostic 1.76 ng/mL (0.0-4.0)
== END | disposition home or self-care (01) ==
LOC: LAB 09:26
PROVIDERS: PCP Family Medicine; Referring Provider Urology; Visit Provider Urology
DX: N40.1 Benign prostatic hyperplasia with lower urinary tract symptoms (principal)
CPT/HCPCS: 36415; 84153

== ENCOUNTER → 2024-01-16 | Outpatient (CLI) | payer MEDICARE, OTHER, SELFPAY ==
[2024-01-16 12:16] LABS: Absolute Lymphocyte Count 0.97 X10^3/uL (0.83-4.51); Absolute Neutrophil Count 4.1 X10^3/uL (2.0-7.7); Basophil# 0.05 X10^3/uL; Basophil% 0.9 % (0-1); Eosinophil# 0.16 X10^3/uL; Eosinophils% 2.7 % (0-5); Hematocrit 42.8 % (40-54); Hemoglobin 13.5 g/dL (13.0-16.5); Lymphocyte # 0.97 X10^3/ul (0.83-4.51); Lymphocyte % 16.7 % (19-41); Mean Corp Hgb Conc 31.5 g/dL (32-36); Mean Corpuscular Hgb 28.8 pg (27.0-32.0); Mean Corpuscular Volume 91.5 fL (80-94); Mean Platelet Vol. 11.2 fl (6.2-12.0); Monocyte# 0.58 X10^3/uL; NRBC Flagged by Analyzer 0 % (0-5); Neutrophil # 4.05 X10^3/uL (2.7-7.7); Neutrophil % 69.5 % (47-70); Platelet Count 242 K/mm3 (150-450); RBC Distribution Width CV 13.8 % (11.6-14.6); RBC Distribution Width SD 46.5 fl (35.1-43.9); Red Blood Count 4.68 M/mm3 (4.6-6.2); White Blood Count 5.8 K/mm3 (4.4-11.0)
[2024-01-16 12:40] LABS: Microalbumin,Random Urine 11.4 mg/L (NO RANGE EST.); Microalbumin:Creatinine Ratio 8.4 mg/g CRE (<30 mg/g CRE)
[2024-01-16 12:45] LABS: ALB/GLOB Ratio 0.9 RATIO (0.9-2.4); AST(SGOT) 30 U/L (15-37); Alanine Aminotransfer ALT/SGPT 40 U/L (16-61); Albumin, Serum 3.7 g/dL (3.2-5.0); Alkaline Phosphatase 81 U/L (45-117); Anion Gap 4 (5-15); BUN 17 mg/dL (7-18); Calcium,Total 9.6 mg/dL (8.5-10.1); Chloride 105 mmol/L (98-107); Creatinine, Serum 1.06 mg/dL (0.70-1.30); EST Glomerular Filtration Rate 73 mL/min (>60); Est Glom Filt Rate - Afr Amer 89 mL/min (>60); Globulin 3.9 g/dL (2.2-4.2); Glucose 109 mg/dL (74-106); Protein, Total 7.6 g/dL (6.4-8.2); Sodium Level 138 mmol/L (136-145)
[2024-01-16 13:02] LABS: Hemoglobin A1c 6.3 % (3.8-5.6)
== END | disposition home or self-care (01) ==
LOC: MFPLAB 09:34
PROVIDERS: PCP Family Medicine; Visit Provider Family Medicine
DX: E11.69 Type 2 diabetes mellitus with other specified complication (principal); E66.9 Obesity, unspecified
CPT/HCPCS: 80053; 82043; 82570; 83036; 85025

== ENCOUNTER → 2024-04-27 | Outpatient (CLI) | payer MEDICARE, OTHER, SELFPAY ==
--- NOTE | 2024-04-27 10:05 | RAD_ITS ---
STUDY: X-RAY - LEFT HAND, ATTENTION INDEX FINGER REASON FOR EXAM: Male, 68 years old. LIF injury TECHNIQUE: 3 view(s) of the finger were obtained. COMPARISON: None. FINDINGS: Normal metacarpal head. Normal metacarpophalangeal joint. Normal proximal phalanx. Normal middle phalanx. Normal distal phalanx. Normal proximal interphalangeal joint. Normal distal interphalangeal joint. Soft tissue swelling. RAD/Finger(s) Min 2 Views IMPRESSION: Soft tissue swelling. No fracture is seen. Electronically Signed: William Cabezas MD at 10:22 EDT ,
== END | disposition home or self-care (01) ==
LOC: MTRAD 10:02
PROVIDERS: PCP Family Medicine; Referring Provider Physician Assistant; Visit Provider Physician Assistant
DX: T14.90XA Injury, unspecified, initial encounter (principal)
CPT/HCPCS: 73140

== ENCOUNTER → 2024-08-09 | Outpatient (CLI) | payer MEDICARE, OTHER, SELFPAY ==
[2024-08-09 10:45] LABS: Hemoglobin A1c 6.4 % (3.8-5.6)
[2024-08-09 10:47] LABS: ALB/GLOB Ratio 0.8 RATIO (0.9-2.4); AST(SGOT) 21 U/L (15-37); Alanine Aminotransfer ALT/SGPT 29 U/L (16-61); Albumin, Serum 3.3 g/dL (3.2-5.0); Alkaline Phosphatase 85 U/L (45-117); Anion Gap 7 (5-15); BUN 17 mg/dL (7-18); BUN/Creat Ratio 16.7 RATIO (10-20); Calcium,Total 9.1 mg/dL (8.5-10.1); Chloride 106 mmol/L (98-107); Cholesterol 138 mg/dL (200); Creatinine, Serum 1.02 mg/dL (0.70-1.30); EST Glomerular Filtration Rate 77 mL/min (>60); Est Glom Filt Rate - Afr Amer 93 mL/min (>60); Globulin 3.9 g/dL (2.2-4.2); Glucose 115 mg/dL (74-106); High Density Lipoprotein 42 mg/dL; Potassium 4.3 mmol/L (3.5-5.1); Protein, Total 7.2 g/dL (6.4-8.2); Sodium Level 140 mmol/L (136-145); Triglycerides 72 mg/dL; Very Low Density Lipoprotein 14 mg/dL (5-40)
[2024-08-09 10:50] LABS: Microalbumin,Random Urine 8.1 mg/L (NO RANGE EST.); Microalbumin:Creatinine Ratio 8.3 mg/g CRE (<30 mg/g CRE)
== END | disposition home or self-care (01) ==
PROVIDERS: PCP Family Medicine; Referring Provider Family Medicine; Visit Provider Family Medicine
DX: R73.03 Prediabetes (principal)
CPT/HCPCS: 36415; 80053; 80061; 82043; 82570; 83036; 84443

== ENCOUNTER → 2024-11-18 | Outpatient (CLI) | payer MEDICARE, OTHER, SELFPAY ==
[2024-11-18 10:22] LABS: PSA,Total- Diagnostic 1.53 ng/mL (0.0-4.0)
== END | disposition home or self-care (01) ==
LOC: LAB 09:16
PROVIDERS: PCP Family Medicine; Referring Provider Urology; Visit Provider Urology
DX: R97.20 Elevated prostate specific antigen [PSA] (principal)
CPT/HCPCS: 36415; 84153

== ENCOUNTER → 2025-02-17 | Outpatient (CLI) | payer MEDICARE, OTHER, SELFPAY ==
[2025-02-17 17:45] LABS: Absolute Lymphocyte Count 1.28 X10^3/uL (0.83-4.51); Basophil# 0.07 X10^3/uL; Basophil% 0.9 % (0-1); Eosinophil# 0.16 X10^3/uL; Eosinophils% 2.2 % (0-5); Hematocrit 40.5 % (40-54); Hemoglobin 12.9 g/dL (13.0-16.5); Lymphocyte # 1.28 X10^3/ul (0.83-4.51); Lymphocyte % 17.3 % (19-41); Mean Corp Hgb Conc 31.9 g/dL (32-36); Mean Corpuscular Hgb 27.3 pg (27.0-32.0); Mean Corpuscular Volume 85.6 fL (80-94); Mean Platelet Vol. 10.6 fl (6.2-12.0); Monocyte# 0.88 X10^3/uL; Monocyte% 11.9 % (0-10); NRBC Flagged by Analyzer 0 % (0-5); Neutrophil # 4.98 X10^3/uL (2.7-7.7); Neutrophil % 67.4 % (47-70); Platelet Count 260 K/mm3 (150-450); RBC Distribution Width CV 17.5 % (11.6-14.6); RBC Distribution Width SD 54.7 fl (35.1-43.9); Red Blood Count 4.73 M/mm3 (4.6-6.2); White Blood Count 7.4 K/mm3 (4.4-11.0)
[2025-02-17 18:21] LABS: ALB/GLOB Ratio 1.4 RATIO (0.9-2.4); AST(SGOT) 22 U/L (<=37); Alanine Aminotransfer ALT/SGPT 26 U/L (<=46); Albumin, Serum 4.1 g/dL (3.4-4.8); Alkaline Phosphatase 76 U/L (40-129); Anion Gap 10 (5-15); BUN 18 mg/dL (4-19); BUN/Creat Ratio 21.7 RATIO (10-20); Calcium,Total 9.6 mg/dL (7.6-11.0); Carbon Dioxide 23.2 mmol/L (21.0-32.0); Chloride 106 mmol/L (98-108); Creatinine, Serum 0.85 mg/dL (0.70-1.20); EST Glomerular Filtration Rate 93 (>60); Glucose 89 mg/dL (70-99); Potassium 4.5 mmol/L (3.3-5.1); Sodium Level 139 mmol/L (133-145); Total Bilirubin 0.44 mg/dL (0.00-1.30)
[2025-02-17 20:35] LABS: Hemoglobin A1c 6.8 % (<=5.6)
[2025-02-17 20:36] LABS: Microalbumin,Random Urine 12.7 mg/L (NO RANGE EST.); Microalbumin:Creatinine Ratio 84.1 mg/g CRE
== END | disposition home or self-care (01) ==
LOC: MFPLAB 14:59
PROVIDERS: PCP Family Medicine; Referring Provider Family Medicine; Visit Provider Family Medicine
DX: E11.69 Type 2 diabetes mellitus with other specified complication (principal); E66.9 Obesity, unspecified
CPT/HCPCS: 36415; 80053; 82043; 82570; 83036; 85025

== ENCOUNTER 2025-08-09 07:37 | Emergency (ER) | payer MEDICARE, OTHER, SELFPAY ==
[2025-08-09 07:37] VITALS: BP 169/80; PULSE 70; RESP 18; TEMP 37.2; O2SAT 96; BMI 37.2
--- NOTE | 2025-08-09 07:52 | EX.ED.DYSGE1 ---
HPI History of Present Illness Chief Complaint: Flank Pain Informant: patient Onset/Context/Timing Onset: Yesterday Context: Gradual Onset Timing: Continuous Quality: Dull, aching Location: Right flank and right inguinal area Worsened by: Nothing Relieved by: Nothing Narrative Narrative: Patient presents with right flank and groin pain that began last evening. Patient states it began approximately 8 PM last night (12 hours prior to arrival). Patient describes it as dull. Patient states it is over the right flank and right inguinal area. Patient states nothing makes it worse and nothing makes it better. Patient does admit to some nausea and vomiting. Patient admits to some urinary frequency but denies any dysuria or hematuria. Patient denies any fevers or chills. [facility] Medical History Laceration of left index finger History of retinal tear History of colon polyps HTN (hypertension) Osteoarthritis Home Medications ?Medication ?Instructions ?Recorded ?Last Taken ?Type aspirin 81 mg tablet,delayed 81 mg PO DAILY 01/08/19 01/27/19 History release (Adult Low Dose Aspirin) bisoprolol fumarate 5 mg tablet 5 mg PO DAILY BP 01/08/19 02/03/19 05:00 History cholecalciferol (vitamin D3) 25 1,000 unit PO DAILY 01/08/19 Unknown History mcg (1,000 unit) capsule magnesium oxide 420 mg tablet 420 mg PO QHS 01/08/19 Unknown History wfundcdceuis-yqzfpbnf-dfxcay tablet 1 tab PO DAILY 01/08/19 Unknown History oxybutynin chloride 10 mg 10 mg PO DAILY 01/08/19 Unknown History tablet,extended release 24 hr pyridoxine (vitamin B6) 100 mg 100 mg PO DAILY 01/08/19 Unknown History tablet tamsulosin 0.4 mg capsule (Flomax) 0.4 mg PO QHS PROSTATE 01/08/19 Unknown History ondansetron HCl 8 mg tablet 8 mg PO Q8H PRN nausea and 12/17/24 Unknown Rx vomiting #14 tabs hydrocodone-acetaminophen 5-325mg 1 tab PO Q6H PRN PRN Pain 3 days 08/09/25 Unknown Rx 5mg-325mg #10 TABLETS Allergy/AdvReac Type Severity Reaction Status Date / Time No Known Allergies Allergy Verified 08/09/25 07:38 Family History Mother Diabetes Heart disease Kidney disease Father Diabetes Heart disease Myocardial infarction Sister Diabetes Surgical History History of wisdom tooth extraction History of arthroscopy History of vasectomy History of cystoscopy (~12/2018) History of circumcision (~12/2018) History of carpal tunnel repair (~2015) History of umbilical hernia repair (~2015) History of colonoscopy (~2015) History of cataract extraction Social History Smoking Status: Never smoker ROS ROS ED Constitutional Constitutional ED: Denies chills or fever(s) Eyes Eyes: Denies blurry vision or change in vision ENT ENT ED: Denies rhinorrhea or sore throat Cardiovascular Cardiovascular: Denies chest pain or palpitations Respiratory/Chest Respiratory/Chest: Denies cough or dyspnea Gastrointestinal Gastrointestinal: Reports abdominal pain, nausea and vomiting Genitourinary Genitourinary ED: Reports urinary frequency; Denies dysuria or hematuria Musculoskeletal Musculoskeletal: Reports back pain; Denies neck pain Integumentary Denies abscess or rash Neurologic Neurologic: Denies headache(s) or weakness Allergic/Immunologic Allergic/Immunologic ED: Denies mouth swelling or urticaria EXAM Physical Exam Const Vital Signs: 08/09/25 07:37 Temperature 98.9 F Temperature Source Temporal Pulse Rate 70 Respiratory Rate 18 Blood Pressure 169/80 H Blood Pressure Mean 109 Pulse Ox 96 Oxygen Delivery Method Room Air Positive well nourished and well developed General Appearance ED: well developed and NAD HEENT Reports moist mucous membranes Neck supple and no JVD Resp normal respiratory effort and clear to auscultation bilaterally Cardio regular rate and regular rhythm GI non-distended Palpation: soft and tender RLQ and RUQ; Negative for guarding or rebound tenderness present Back/Spine General Back: CVA tenderness right Neuro oriented x3, CN's II-XII intact bilaterally and no sensory deficits noted Sensorium / Orientation: alert Motor Exam: strength 5/5 throughout Psych mental status grossly normal MDM MDM MDM Narrative Medical decision making narrative: Differential diagnosis includes ureteral calculus, pyelonephritis, inguinal hernia, electrolyte abnormality, bowel obstruction, perforation, and urinary tract infection. CBC will be obtained to assess for leukocytosis and anemia. Basic metabolic profile will be obtained to assess for electrolyte abnormality and renal function. Urinalysis will be obtained to assess for urinary tract infection and hematuria. CT scan of the abdomen and pelvis will be obtained to assess for ureteral calculus, bowel obstruction, and perforation. History & Record Review Additional record(s) reviewed:: Prior outpatient record, Prior ED visit and Prior labs Lab Data Attestation: I reviewed the patient's lab results. Lab results narrative: CBC was reviewed. There is a mild leukocytosis of 12.4. The remainder is within normal limits. Basic metabolic profile was reviewed and was essentially within normal limits. Glucose was mildly elevated at 176. Urinalysis was reviewed. Occult blood was 250 with 5-10 red blood cells. There is no evidence of urinary tract infection. Labs: Laboratory Results - last 24 hr 08/09/25 08/09/25 07:47 08:19 WBC 12.4 H RBC 4.48 L Hgb 13.1 Hct 39.7 L MCV 88.6 MCH 29.2 MCHC 33.0 RDW Std Deviation 46.6 H RDW Coeff of Lila 14.4 Plt Count 262 MPV 10.7 Immature Gran % (Auto) 0.500 Neut % (Auto) 84.0 H Lymph % (Auto) 5.9 L [place] % (Auto) 8.5 Eos % (Auto) 0.6 Baso % (Auto) 0.5 Absolute Neuts (auto) 10.5 H Absolute Lymphs (auto) 0.73 L Nucleated RBC % 0 Sodium 138 Potassium 4.5 Chloride 101 Carbon Dioxide 25.2 Anion Gap 12 BUN 20 H Creatinine 1.12 Estim Creat Clear Calc 69.80 Est GFR (MDRD) Non-Af 70 BUN/Creatinine Ratio 17.4 Glucose 176 H Calcium 9.7 Urine Color Yellow Urine Clarity Clear Urine pH 6.0 Ur Specific [place] 1.025 Urine Protein 30 H Urine Glucose (UA) Normal Urine Ketones Negative Urine Occult Blood 250 H Urine Nitrite Negative Urine Bilirubin Negative Urine Urobilinogen Normal Ur Leukocyte Esterase Negative Urine RBC 5-10 SEEN Urine WBC 0-5 SEEN Ur Squamous Epith Cells 0 SEEN Urine Bacteria 0 SEEN Urine Mucus 0 SEEN Radiography Diagnostic Testing: Clinical Impression(s) from Imaging Studies Abdomen/Pelvis CT 08/09/25 08:41 IMPRESSION: 2.5 mm calculus at the right ureterovesical junction causing mild degree of right hydronephrosis and perinephric stranding on the right side. Small hyperdense cyst in the upper pole of the right kidney. Prostatic enlargement. Small left inguinal hernia containing fat. Reading Location: [id number] scan of the abdomen and pelvis was obtained. There is a 2.5 mm calculus in the right ureterovesicular junction with right hydronephrosis and perinephric stranding. There is a small cyst in the upper pole of the right kidney. There is a small left inguinal hernia containing fat. There is no evidence of obstruction. This was interpreted by the radiologist and was also independently reviewed by myself. Treatment and Re-Evaluation :: Patient was given IV fluids, morphine, and Zofran. Patient was given a dose of [place] here. Patient was given a prescription for [place]. Patient was instructed to drink plenty of fluids. Patient was instructed to follow-up with his urologist in 3 to 5 days for further evaluation. Patient understood and was agreeable with the plan. All questions were answered. Discharge Plan Triage Chief Complaint: Flank Pain ED Provider: Shawn Holder Dx/Rx/DC Orders Clinical Impression: Calculus of distal right ureter, Right flank pain Instructions: ED Urine Strainer, ED Kidney Stone with Pain Prescriptions: New hydrocodone-acetaminophen 5-325 mg tablet 1 tab PO Q6H PRN PRN (Reason: Pain) 3 Days Qty: 10 0RF No Action aspirin [Adult Low Dose Aspirin] 81 mg tablet,delayed release (DR/EC) 81 mg PO DAILY Patient Comments: STOPPED PER INSTRUCTIONS FOR PROCEDURE pyridoxine (vitamin B6) 100 mg tablet 100 mg PO DAILY cholecalciferol (vitamin D3) 1,000 unit capsule 1,000 unit PO DAILY gvnmuznefaec-zfrgppmq-etlxrd tablet 1 tab PO DAILY bisoprolol fumarate 5 mg tablet 5 mg PO DAILY magnesium oxide 420 mg tablet 420 mg PO QHS tamsulosin [Flomax] 0.4 mg capsule 0.4 mg PO QHS oxybutynin chloride 10 mg tablet extended release 24hr 10 mg PO DAILY ondansetron HCl 8 mg tablet 8 mg PO Q8H PRN (Reason: nausea and vomiting) Qty: 14 0RF Primary Care Provider: Shawn Parmar Referrals: Shawn Parmar MD [Primary Care Provider] - Thom Main MD [Med Staff - Active Staff] - 3-5 Days Print Language: [place] Disposition Disposition: Home, Self Care
--- NOTE | 2025-08-09 08:41 | CT_ITS ---
PROCEDURE: ABDOMEN/PELVIS WITHOUT CONT 08/09/2025 REASON FOR EXAM: RIGHT FLANK PAIN Radiation into the right groin. TECHNIQUE: Procedure Code: CTABDPEL Modality: CT Procedure: ABDOMEN/PELVIS WITHOUT CONT Noncontrast technique limits evaluation of the abdominal and pelvic viscera. Coronal and Sagittal reconstruction series were provided. One or more dose reduction techniques were used (e.g., Automated exposure control, adjustment of the mA and/or kV according to patient size, use of iterative reconstruction technique). RADIATION DOSE SUMMARY: CTDlvol: 19.06 mGy DLP: 1057.42 mGycm COMPARISON: None FINDINGS: Lung bases: The lung bases are clear. Mild coronary artery calcification. Liver: Normal size. No obvious mass. Gallbladder: Unremarkable. Spleen: Normal size. Pancreas: Normal size. No surrounding inflammation. Adrenals: Unremarkable Kidneys: There is engorgement of the right kidney with evidence of perinephric stranding. Mild degree of right hydronephrosis due to a 2.5 mm calculus at the right ureterovesical junction. There is a 1.3 cm hyperdense cyst in the upper pole of the right kidney. The left kidney is unremarkable. Bladder: The bladder is empty. Prosthetic enlargement with indentation of the bladder base. Small left inguinal hernia containing fat. Bowel: Colonic diverticulosis without diverticulitis. Appendix: The appendix is not identified. There is no inflammatory process identified in the right lower quadrant to suggest appendicitis. Lymph nodes: Unremarkable. Vasculature: Minimal atherosclerotic plaque formation of the abdominal aorta. Peritoneum / Retroperitoneum: Unremarkable Bones: Degenerative changes of the spine. CT/Abdomen/Pelvis without Cont IMPRESSION: 2.5 mm calculus at the right ureterovesical junction causing mild degree of rig ht hydronephrosis and perinephric stranding on the right side. Small hyperdense cyst in the upper pole of the right kidney. Prostatic enlargement. Small left inguinal hernia containing fat. Reading Location: [id number]
[2025-08-09 08:51] LABS: Mucous, Urine 0 SEEN /hpf (<or=2+); Squamous Epithelial Cells - UA 0 SEEN /hpf (0-5)
[2025-08-09] MEDS: 0.9% Normal Saline (1000mL) 1,000 ML 1000 ML IV (08:52)
[2025-08-09 08:55] LABS: Hematocrit 39.7 % (40-54); Hemoglobin 13.1 g/dL (13.0-16.5); Immature Granulocytes Count 0.060 X10^3/uL (0.0-0.0); Mean Corp Hgb Conc 33.0 g/dL (32-36); Mean Corpuscular Volume 88.6 fL (80-94); Mean Platelet Vol. 10.7 fl (6.2-12.0); NRBC Flagged by Analyzer 0 % (0-5); Platelet Count 262 K/mm3 (150-450); RBC Distribution Width CV 14.4 % (11.6-14.6); RBC Distribution Width SD 46.6 fl (35.1-43.9); Red Blood Count 4.48 M/mm3 (4.6-6.2); White Blood Count 12.4 K/mm3 (4.4-11.0)
[2025-08-09 08:57] LABS: Color, Urine Yellow (Yellow); Glucose, Dipstick Normal (Normal); Ketone-Dipstick Negative (Negative); Leukocyte Esterase-Dipstick Negative /ul (Negative); Nitrite-Dipstick Negative (Negative); Occult Blood-Urine 250 /ul (Negative); Protein-Dipstick 30 mg/dl (Negative); Specific Gravity, Urine 1.025 (1.002-1.030); Urine Bilirubin Dipstick Negative (Negative)
[2025-08-09 09:16] LABS: Red Blood Cells-Urine 5-10 SEEN /hpf (0-5)
[2025-08-09 09:30] LABS: Anion Gap 12 (5-15); BUN 20 mg/dL (4-19); BUN/Creat Ratio 17.4 RATIO (10-20); Calcium,Total 9.7 mg/dL (7.6-11.0); Carbon Dioxide 25.2 mmol/L (21.0-32.0); Chloride 101 mmol/L (98-108); Estimated Creatinine Clearance 69.80 ml/min (50-250); Glucose 176 mg/dL (70-99); Potassium 4.5 mmol/L (3.3-5.1)
[2025-08-09 09:37] VITALS: PULSE 69; RESP 18; O2SAT 98
[2025-08-09] MEDS: HYDROcodone Bitartrate/Apap 5/325 Tablet PO (10:35)
[2025-08-09 10:44] VITALS: BP 169/80; PULSE 69; RESP 18; TEMP 37.2; O2SAT 98
== END 2025-08-09 10:45 | disposition home or self-care (01) ==
PROVIDERS: Emergency Provider Emergency Medicine; PCP Family Medicine; Visit Provider Emergency Medicine
DX: N13.2 Hydronephrosis with renal and ureteral calculous obstruction (principal); N28.1 Cyst of kidney, acquired; K40.90 Unilateral inguinal hernia, without obstruction or gangrene, not specified as recurrent; I10 Essential (primary) hypertension; Z79.82 Long term (current) use of aspirin; Z79.899 Other long term (current) drug therapy
CPT/HCPCS: 74176; 80048; 81001; 85025; 96361; 96374; 96375; 99283; A4216; J2405

== ENCOUNTER 2025-08-12 09:40 | Day surgery (SDC) | payer MEDICARE, OTHER, SELFPAY ==
[2025-08-12] VITALS (8 sets, daily range): BP systolic 130–160; BP diastolic 69–81; PULSE 54–63; RESP 16–18; TEMP 36.1–36.5; O2SAT 94–99; BMI 36.5
[2025-08-12] MEDS: Lactated Ringers 1,000 ML 15 ML IV (10:08)
--- NOTE | 2025-08-12 11:05 | PCM.PRE.AN2 ---
ASA Classification* ASA Classification ASA Classification: 2 Assessment & Plan Anesthesia* Anesthesia Assessment Anesthesia Assessment: Discussed sedation and/or anesthesia options, risks, benefits, and alternatives with patient/parents/legal guardian/POA. Questions invited. The patient/parents/legal guardian/POA seems to understand and agrees to proceed with anesthesia plan. Reviewed the physical assessment, medical history, allergy history and patient home medications list prior to surgery/procedure/anesthetic and documented any changes. Performed airway and anesthesia risk assessments. Anesthesia Type Anesthesia Type: General Anesthesia Focused Assessment* Temperature: 97.7 F Pulse Rate: 60 Blood Pressure: 160/81 Respiratory Rate: 16 Pulse Ox: 99 Airway Assessment Mouth opens: >3 cm Mallampati Score: II Labs Anesthesia Preop lab: CBC WBC 12.4 K/mm3 (4.4-11.0) H 08/09/25 08:19 08/09/25 RBC 4.48 M/mm3 (4.6-6.2) L 08/09/25 08:08/09/25 Hgb 13.1 g/dL (13.0-16.5) 08/09/25 08:19 08/09/25 Hct 39.7 % (40-54) L 08/09/25 08:08/09/25 Plt Count 262 K/mm3 (150-450) 08/09/25 08:19 08/09/25 CHEMISTRY Potassium 4.5 mmol/L (3.3-5.1) 08/09/25 08:19 08/09/25 Sodium 138 mmol/L (133-145) 08/09/25 08:19 08/09/25 Magnesium 1.9 mg/dL (1.8-2.4) 11/15/15 08:53 11/15/15 BUN 20 mg/dL (4-19) H 08/09/25 08:19 08/09/25 Creatinine 1.12 mg/dL (0.70-1.20) 08/09/25 08:19 08/09/25 Glucose 176 mg/dL (70-99) H 08/09/25 08:19 08/09/25 POC Glucose 113 mg/dL (74-106) H 08/12/25 10:04 08/12/25 TSH 4.890 uIU/mL (0.358-3.740) H 08/09/24 07:37 08/09/24 COAG Pre-Assessment Diagnosis/Proposed Procedure Planned Operative Procedure(s): CYSTO, RETRO, LASER, STENT Anesthesia History 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 When Was Last Pacemaker Check QUESTION #4 FULL TEXT: You/Your Family Experience fever (hyperthermia) with Anesthesia Last Oral Intake Last Oral intake: Last Oral Intake NPO since 08:30 08/12/25 10:04 Meds taken in AM with sips of Yes 08/12/25 10:04 water? Meds patient instructed to see med rec 08/12/25 10:04 take am of surgery PONV PONV - post office clerk: PONV - post office clerk Female No 08/11/25 14:24 HX of Motion Sickness Yes 08/11/25 14:24 HX of N/V After Surgery Yes 08/11/25 14:24 Non-Smoker Yes 08/11/25 14:24 Duration of Surgery greater No 08/11/25 14:24 than 60 minutes Number of Risk Factors 3 08/11/25 14:24 PONV Score Moderate Risk 08/11/25 14:24 Height & Weight Height & Weight: Anesthesia: Height & Weight Height 5 ft 7 in 08/12/25 10:04 Weight: 105.7 kg 08/12/25 10:04 Body Mass Index (BMI) 36.5 08/12/25 10:04 Respiratory Assessment Respiratory Assessment - post office clerk: Respiratory Tract Infection Hx - post office clerk Hx Respiratory Tract Infection No 08/11/25 14:24 STOP Sleep Apnea STOP Sleep Apnea - post office clerk: STOP Sleep Apnea - post office clerk Hx Hypertension Yes: CONTROLLED WITH MED 08/11/25 14:24 Hx Sleep Apnea Yes 08/11/25 14:24 CPAP Yes 08/11/25 14:24 BIPAP No 08/11/25 14:24 Do you snore loudly (louder than talking or can be heard Do you often feel tired/ fatigued/ sleepy during daytime? Has anyone observed you stop breathing during sleep? STOP Results Positive 08/11/25 14:24 QUESTION #5 FULL TEXT : Do you snore loudly (louder than talking or can be heard through closed doors)? Tobacco Use History Tobacco Use History - post office clerk: Tobacco Use History - post office clerk Tobacco Use Smoking Status Never smoker 08/11/25 14:24 Hx Tobacco Use No 08/11/25 14:24 Years Smoking Packs Smoked per Day Smoking Cessation Date was within the last 15 years Hx Smoking Cessation Date Hx Smoking Cessation Counseling Hematologic Medial History Hematologic Hx - post office clerk: Hematologic Medical Hx - massage therapist Hx of Blood Transfusion No 08/11/25 14:24 Hx of Transfusion in last 3 No 08/11/25 14:24 Months Date of Last Transfusion (if within last 3 months) Ever experience any problems No 08/11/25 14:24 with transfusion(s)? Specify any problems Hx of Preganancy in last 3 N/A 08/11/25 14:24 Months Nurse Filling Out Transfusion NBUCHER 08/11/25 14:24 & Questions: Date: 08/11/25 08/11/25 14:24 Time: 14:25 08/11/25 14:24 Patient unable to answer at this time (ie. confused, unrespo /Reproduction History /Reproductive History - post office clerk: /Reproductive Hx- post office clerk Hx Now No 08/11/25 14:24 Gestational Age (in weeks): EDC: Hx Hx Para Hx Section SAB No 08/11/25 14:24 Active Medications Active Medications: Current Medications Generic Name Dose Route Start Last Admin Trade Name Freq PRN Reason Stop Dose Admin Cefazolin Sodium 2 gm/ Sodium 110 mls @ 200 mls/hr 08/12/25 12:55 Chloride IV 08/12/25 13:27 INTRAOP ONE Lactated Ringer's 1,000 mls @ 15 mls/hr 08/12/25 10:15 08/12/25 10:08 IV 15 mls/hr .Q48H SILVANO Administration PFSH Medical History (Updated 08/11/25 @ 14:30 by Vida Berkowitz) Wears glasses Prostate disease High cholesterol Non-smoker CPAP (continuous positive airway pressure) dependence Sleep apnea History of echocardiogram History of stress test Laceration of left index finger History of retinal tear History of colon polyps HTN (hypertension) Osteoarthritis Home Medications ?Medication ?Instructions ?Recorded ?Last Taken ?Type aspirin 81 mg tablet,delayed 81 mg PO DAILY 01/08/19 08/10/25 History release (Adult Low Dose Aspirin) bisoprolol fumarate 5 mg tablet 5 mg PO DAILY BP 01/08/19 08/12/25 08:30 History cholecalciferol (vitamin D3) 25 1,000 unit PO DAILY 01/08/19 Unknown History mcg (1,000 unit) capsule bgbrogwtntwz-horzdoyg-jdpwbs tablet 1 tab PO DAILY 01/08/19 Unknown History oxybutynin chloride 10 mg 10 mg PO DAILY 01/08/19 Unknown History tablet,extended release 24 hr pyridoxine (vitamin B6) 100 mg 100 mg PO DAILY 01/08/19 Unknown History tablet tamsulosin 0.4 mg capsule (Flomax) 0.4 mg PO QHS PROSTATE 01/08/19 Unknown History hydrocodone-acetaminophen 5-325mg 1 tab PO Q6H PRN PRN Pain 3 days 08/09/25 08/12/25 04:30 Rx 5mg-325mg #10 TABLETS finasteride 5 mg tablet 5 mg PO DAILY 08/11/25 Unknown History magnesium oxide 400 mg (241.3 mg 400 mg PO QHS 08/11/25 Unknown History magnesium) tablet metformin 500 mg tablet,extended 500 mg PO BID 08/11/25 Unknown History release 24 hr pravastatin 40 mg tablet 40 mg PO QPM 08/11/25 Unknown History ciprofloxacin HCl 500 mg tablet 500 mg PO BID #10 tabs 08/12/25 Unknown Rx (Cipro) oxycodone 5 mg tablet 5 mg PO Q6H PRN pain 7 days #14 08/12/25 Unknown Rx tabs phenazopyridine 100 mg tablet 100 mg PO TID #14 tabs 08/12/25 Unknown Rx (Pyridium) Allergy/AdvReac Type Severity Reaction Status Date / Time No Known Allergies Allergy Verified 08/12/25 10:01 Family History Mother Diabetes Heart disease Kidney disease Father Diabetes Heart disease Myocardial infarction Sister Diabetes Surgical History (Updated 08/11/25 @ 14:30 by Vida Berkowitz) History of wisdom tooth extraction History of arthroscopy History of vasectomy History of cystoscopy (~12/2018) History of circumcision (~12/2018) History of carpal tunnel repair (~2015) History of umbilical hernia repair (~2015) History of colonoscopy (~2015) History of cataract extraction Social History Smoking Status: Never smoker Review of Systems (Anesthesia) ROS Narrative System reviewed and no additional complaints, except as documented.
--- NOTE | 2025-08-12 11:07 | PCM.DC ---
Discharge Instructions DC O2, CPAP, BIPAP needs Home O2 Discharge instructions: No Dressing / Incision Discharge Activity: Return to Normal Activity and May Not Drive (while taking narcotic pain medications.) Dressing / Incision Call your doctor if you observe: Fever of 101 or Higher Follow Up Care Please Follow Up With: Thom Main MD When: Call [phone] for an appointment Test Results: Test results from this visit will be discussed in further detail at your follow-up appointment, if applicable. Discharge Plan Admission Primary Reason for Your Visit: right kidney stone Attending Provider: Thom Main Primary Care Provider: Shawn Parmar Instructions Print Language: Martiniquais Discharge Orders/Prescriptions Prescriptions: New ciprofloxacin HCl [Cipro] 500 mg tablet 500 mg PO BID Qty: 10 0RF phenazopyridine [Pyridium] 100 mg tablet 100 mg PO TID Qty: 14 0RF oxycodone 5 mg tablet 5 mg PO Q6H PRN (Reason: pain) 7 Days Qty: 14 0RF No Action aspirin [Adult Low Dose Aspirin] 81 mg tablet,delayed release (DR/EC) 81 mg PO DAILY Patient Comments: STOPPED PER INSTRUCTIONS FOR PROCEDURE pyridoxine (vitamin B6) 100 mg tablet 100 mg PO DAILY cholecalciferol (vitamin D3) 1,000 unit capsule 1,000 unit PO DAILY yvkuetzfuumt-rybuwqco-tbhgum tablet 1 tab PO DAILY bisoprolol fumarate 5 mg tablet 5 mg PO DAILY tamsulosin [Flomax] 0.4 mg capsule 0.4 mg PO QHS oxybutynin chloride 10 mg tablet extended release 24hr 10 mg PO DAILY pravastatin 40 mg tablet 40 mg PO QPM magnesium oxide 400 mg (241.3 mg magnesium) tablet 400 mg PO QHS metformin 500 mg tablet extended release 24 hr 500 mg PO BID finasteride 5 mg tablet 5 mg PO DAILY hydrocodone-acetaminophen 5-325 mg tablet 1 tab PO Q6H PRN PRN (Reason: Pain) 3 Days Qty: 10 0RF Referrals / Follow Up: Shawn Parmar MD [Primary Care Provider] - Thom Main MD [Med Staff - Active Staff] - Disposition Disposition (needs filled in before D/C Order can be placed): Home, Self Care
[2025-08-12] MEDS: Cefazolin 1 GM/5 ML Vial 2 GM IV (11:18)
[2025-08-12] MEDS: fentaNYL 100 MCG/2 ML Ampul 50 MCG IV (11:22)
[2025-08-12] MEDS: Lidocaine 1% (5 ml sdv) 5 ML Vial IV (11:22)
--- NOTE | 2025-08-12 11:39 | OP.PCM_ITS ---
Operative Report (Standard) Operative Information Date of Procedure: 08/12/25 Pre-Operative Diagnosis: Right obstructing ureteral calculi Post-Operative Diagnosis: the same Surgery/Procedure Performed: Cystoscopy, balloon dilation of right ureter, retro grade pyelogram, right ureteroscopy basket extraction of stone and stent placement telephone station repairer: No Type of Anesthesia: General RN Documented Start/Stop Times: Operation Date: 08/12/25 12:55 Case Time Into Pre-Op 08/12/25 10:04 Anesthesia Start 08/12/25 11:18 Into Room 08/12/25 11:18 Procedure Start 08/12/25 11:29 Procedure End 08/12/25 11:38 Procedure Start Time: Procedure Stop Time: :38 Select all DRAINS/GRAFTS/IMPLANTS that apply: None Estimated Blood Loss: None Specimen collected: Yes Description of specimen(s) removed: Stone Description of surgery: This is a patient who presents to the hospital for treatment for an obstructing distal ureter calculi. I discussed with the patient how the surgery would be performed and we reviewed the risks and benefits of the surgery. The risk and benefits include the risk of failure to remove the stone completely and that the patient may need multiple procedures. We discussed the risk of an infection, the risk of bleeding. We discussed the very rare risk of serious complicated injury to the ureter. The patient understands that if the stone is not able to be removed safely that we may abort the procedure and place a stent. After full discussion and all questions address with the patient the consent form was signed the side was marked appropriately and the patient was taken back to the operating room for the procedure. The patient was taken back to the operating room. After induction of anesthesia by the anesthesiology team the patient was placed in dorsolithotomy position. The genitals were prepped and draped in usual sterile fashion. I went into the bladder with a 21 Hungarian rigid cystourethroscope through the urethra. Upon entering the bladder I inspected the trigone the left and right ureteral orifice and the bladder itself. I then cannulated the ureteral orifice and advanced a 0.038 Glidewire up into the kidney. Then over the Glidewire I advanced a 5 Fr Ureteral catheter and performed a retrograde pyelogram with about 10cc of contrast, to delineate the anatomy and identify the stone location. Then a ureteral balloon dilator was advanced over the wire and the distal ureter was balloon dilated with a 12 Fr x 5cm balloon dilator. After 3 minutes of dilating the ureter the balloon was backloaded off the 0.038 glidewire then the safety wire was left in place. I then placed a second 0.038 Guidewire as a working wire and over the working 0.038 guidewire I went in with the chaparro rigide 7.5fr ureteroscope. I was able to go inside with the 7.5Fr chaparro rigid utereroscope and I pulled out the working guidewire and then through the 7.5 fr simirigid ureteroscope I engage the stone in the distal ureter with tipless basket and extacted the stone. A retrograde pyelogram was performed with 10cc of contrast and no extravasation of contrast or perforation was identified in the ureter there was some mild irritation of the ureter where the stone was located. I then backed out of the ureter left the wire in place and then over the 0.038 guidewire I placed a double coiled pigtail ureteral stent. The ureteral stent was advanced over the 0.038 guidewire under direct fluoroscopic guidance and direct cystoscopic visual guidance, once the stent was in good position I pulled the wire and the stent coiled in the kidney and bladder in good position. I then drained the patient's bladder and the cystoscope was removed and the patient was taken back to the recovery room in good position. The patient was given discharge instructions to call the office for instructions on when to come to the office to have the stent removed. Surgical Findings: Stone extracted from the distal right ureter stent placed Complications Complications: No Admit VTE Documentation VTE Present on Admission: No VTE Mechan Device Prophylaxis: SCD's VTE Pharm Prophylaxis ordered?: No
--- NOTE | 2025-08-12 11:44 | PCM.POST.ANE ---
Anesthesia: Postop Eval I Current Vital Signs Temperature: 97.6 F Pulse Rate: 57 Blood Pressure: 130/72 Respiratory Rate: 18 Pulse Ox: 97 Assessment Airway patent: Yes Spontaneous unlabored respirations: Yes nausea: No Vomiting: No Anesthesia Complication: No Fluid Hydration Crystalloid volume administer (ml): 700 Total IV fluid infused: 700 Progress Note Anesthesia document: Postop Eval 1 completed: Yes
--- NOTE | 2025-08-12 12:09 | POSTOPAN2_ITS ---
Anesthesia Postop Eval I Sum Postop Eval Completion status Anesthesia document: Postop Eval 1 completed: Yes Anesthesia Postop Eval I Summary Anesthesia Postop Eval I Summary: Anesthesia Postop Eval I: Assessment Summary Airway patent Yes 08/12/25 11:44 MANAGER LANGUAGE.CSIR Spontaneous unlabored Yes 08/12/25 11:44 MANAGER LANGUAGE.CSIR respirations Mental status nausea No 08/12/25 11:44 MANAGER LANGUAGE.CSIR Vomiting No 08/12/25 11:44 MANAGER LANGUAGE.CSIR Anesthesia Postop Eval I: Fluid Summary Crystalloid volume administer 700 08/12/25 11:44 MANAGER LANGUAGE.CSIR (ml) Colloids volume administered ( ml) Blood Product volume administered (ml) Total IV fluid infused 700 08/12/25 11:44 MANAGER LANGUAGE.CSIR Anesthesia Postop Eval I: Summary Notes Anesthesia Complication No 08/12/25 11:44 MANAGER LANGUAGE.CSIR Anesthesia Complication Comment: Post-operative progress note Anesthesia: Postop Eval II Evaluation Mental status: Awake Pain Level: 0 nausea: No Vomiting: No
--- NOTE | 2025-08-12 12:09 | PCM.POSTANE2 ---
Anesthesia Postop Eval I Sum Postop Eval Completion status Anesthesia document: Postop Eval 1 completed: Yes Anesthesia Postop Eval I Summary Anesthesia Postop Eval I Summary: Anesthesia Postop Eval I: Assessment Summary Airway patent Yes 08/12/25 11:44 SYSTEM ADMINISTRATION ADVISOR.CSIR Spontaneous unlabored Yes 08/12/25 11:44 SYSTEM ADMINISTRATION ADVISOR.CSIR respirations Mental status nausea No 08/12/25 11:44 SYSTEM ADMINISTRATION ADVISOR.CSIR Vomiting No 08/12/25 11:44 SYSTEM ADMINISTRATION ADVISOR.CSIR Anesthesia Postop Eval I: Fluid Summary Crystalloid volume administer 700 08/12/25 11:44 SYSTEM ADMINISTRATION ADVISOR.CSIR (ml) Colloids volume administered ( ml) Blood Product volume administered (ml) Total IV fluid infused 700 08/12/25 11:44 SYSTEM ADMINISTRATION ADVISOR.CSIR Anesthesia Postop Eval I: Summary Notes Anesthesia Complication No 08/12/25 11:44 SYSTEM ADMINISTRATION ADVISOR.CSIR Anesthesia Complication Comment: Post-operative progress note Anesthesia: Postop Eval II Evaluation Mental status: Awake Pain Level: 0 nausea: No Vomiting: No
--- NOTE | 2025-08-12 12:30 | CALC_PTH ---
PATIENT: STARR MORGAN LOC: [facility] U#:[id number] AGE/SX: 70/M ROOM: RE08/12/[address]: Dr. Thom Main MD : [id number] BED: DIS: 08/12/2025 SPEC #: [id number] RECD: 08/12/25 12:51 STATUS: CRISTHIAN CAIN #: [id number] SHERMAN: 08/12/25 12:[address]: Thom Main DEPT: SURGICAL PATHOLOGY RECD BY: Liam Cohen ENTERED: 08/12/25 13:10 SP TYPE: Calculi OTHR DR: Dr. Shawn Parmar MD Tissues: A - CALCULI Procedures: Surgery Specimen Level I HEADER OPERATION: Cysto, ureteroscopy, extraction of ureteral stone, balloon PRE-OP DIAGNOSIS: Right ureteral stone TISSUE SUBMITTED: A- Right ureteral calculi GROSS DIAGNOSIS A. Calculus, right ureter, extraction of ureteral stone: - Urolithiasis (gross examination only). - Chemical analysis pending, to be reported separately COMMENT The calculus is submitted in its entirety for chemical stone analysis. The results from this study will be reported separately. GROSS DESCRIPTION A. Received fresh labeled with the patient's name and date of . Designated as right ureteral calculi is a 0.3 cm irregular, brown calculus. No sections are submitted. Gross examination only. Sent for stone analysis. [place] 08/12/2025 CPT:21466
== END 2025-08-12 13:05 | disposition home or self-care (01) ==
LOC: SDC 09:44 → AC 10:54
PROVIDERS: PCP Family Medicine; Referring Provider Urology; Visit Provider Urology
PROC: 0TJ98ZZ Inspection of Ureter, Via Natural or Artificial Opening Endoscopic (ICD-10-PCS; CPT 52352; principal; 2025-08-12 12:45)
DX: N20.1 Calculus of ureter (principal); E78.00 Pure hypercholesterolemia, unspecified; I10 Essential (primary) hypertension; Z79.82 Long term (current) use of aspirin; Z79.84 Long term (current) use of oral hypoglycemic drugs; Z79.899 Other long term (current) drug therapy
CPT/HCPCS: 52352; 52332; 00918; 76000; 82360; 82962; 88300; C1769; C2617; J2405